=== PATIENT | male | born 1940 | race Caucasian/White ===

== ENCOUNTER 2016-10-28 17:32 | Emergency (ER) | payer OTHER ==
[~2016-10-28] VITALS: Ht 177.8 cm; Wt 94.2 kg
[~2016-10-28 17:32] MED LIST: ASPI81TA28 PO; COEN1CAP37 PO; DOCU100C31 PO; FRS/40 PO; LEVO125T4 PO; LPR25 PO; METO-217 PO; MULT-506 PO; OMEG10007 PO; POTA10CA28 PO; SIMV40TA2 PO
[2016-10-28 17:36] VITALS: BP 158/76; PULSE 70; TEMP 36.9; O2SAT 97; Ht 177.8 cm; Wt 94.2 kg
[2016-10-28] MEDS ORDERED: GELATIN SPONGE 12-7MM EXT STA (17:55)
--- NOTE | 2016-10-28 18:02 | EMERGENCY ROOM VISIT NOTE ---
ED Visit Note First contact with patient: 17:45 I have personally seen and evaluated the patient with the physician assistant operator. I agree with the diagnostic/management decisions and have personally been involved in these decisions and agree with the diagnosis.
--- NOTE | 2016-10-28 18:07 | EMERGENCY ROOM VISIT NOTE ---
ED Visit Note First contact with patient: 17:45 CHIEF COMPLAINT: Right thumb laceration HISTORY OF PRESENT ILLNESS: This 75-year-old male patient presents to the emergency department ambulatory after cutting the tip of the right thumb on a table saw about one hour ago. The bleeding has not stopped. There is no weakness or numbness of the area. Tetanus shot is up-to-date. Full range of motion of the thumb. The patient rates the pain as stinging and 1/10. REVIEW OF SYSTEMS: A 6 system review of systems was completed with positives and pertinent negatives listed in the HPI. ALLERGIES: Penicillins MEDICATIONS: See med list PMH: Hypothyroidism, hypertension SOCIAL HISTORY: The patient lives locally with family. PHYSICAL EXAM: Vital Signs: Reviewed Nurse's notes, vital signs stable. GENERAL : This is a 75-year-old male, in no acute distress, well-developed, well- nourished. SKIN: There is a 1.5 cm long avulsion laceration to distal aspect of the right thumb. It is superficial and the top layer of skin has been avulsed. There is no foreign material in the wound and it looks clean. There is active bleeding. No deep structures are seen in the base of the wound. Extension and flexion of the thumb is full and strong. Sensation to pain and light touch is intact. EMERGENCY DEPARTMENT COURSE: I examined the patient. Verbal consent was obtained to perform the procedure. The laceration was cleaned with saline and betadine. Gelfoam was applied to the avulsion laceration and the area was dressed with a pressure dressing. The bleeding stopped. The patient tolerated the procedure well. The patient was discharged home in stable condition. DIAGNOSIS: Avulsion laceration of the thumb Problem List Medical Problems: (1) Facial laceration Status: Resolved (2) Fall Status: Resolved Current/Historical Medications Scheduled Aspirin (Aspirin Ec), 81 MG PO DAILY Coenzyme Q10 (Ubidecarenone) (Co Q-10), 10 CAP PO DAILY Docusate Sodium (Docusate Sodium), 1 CAP PO BID Fish Oil ([place]-3), 1 CAP PO DAILY Furosemide (Lasix), 40 MG PO DAILY Levothyroxine Sodium (Levothyroxine Sodium), 125 MCG PO DAILY Metoprolol Succinate (Toprol Xl), 50 MG PO DAILY Metoprolol Tartrate (Lopressor), 25 MG PO Q12 Multivitamin (Multivitamin), 1 TAB PO DAILY Potassium Chloride (Micro-K Ext Rel), 20 MEQ PO DAILY Simvastatin (Zocor), 40 MG PO QPM Allergies Coded Allergies: Penicillins (Verified Allergy, Unknown, hives, 03/10/16) Vital Signs Date Time Temp Pulse Resp B/P Pulse Ox O2 Delivery O2 Flow Rate FiO2 10/28/16 17:36 36.9 70 18 158/76 97 Room Air Departure Information Impression Primary Impression: Laceration of finger Dispostion Home / Self-Care Condition GOOD Referrals Chetan Verde D.O.Int.Med. (PCP) Patient Instructions My [facility] Additional Instructions You have been treated in the Emergency Department today for your finger Avulsion. Leave the GELFOAM and dressing in place for the next 48 hours. Keep the dressing clean and dry until time for removal. To remove the GELFOAM dressing, remove the overlying tape and then soak the wound in warm water until the piece of GELFOAM can be easily removed. Proper wound care is essential for adequate wound healing and infection prevention. You can shower and clean the wound with soap and water. Do not scour over the wound, pat dry with a towel. You can use an antibiotic ointment with a dressing/bandage over the wound for the next 3-4 days. After this time you may leave the wound dry and open to the air. Look for signs of infection of the wound including: increased pain, swelling, foul discharge, streaking, or increased temperature. If any of these are noticed you should return to the Emergency Department for further assessment and treatment. As with any laceration you may have received nerve damage to the surrounding tissues. This damage could be permanent. For pain control, you can use the following aziy-ddw-zgsowdi medicines (if >12 yo): - Regular strength (325mg/tab) Tylenol (acetaminophen) 2 tabs every 4-6 hours as needed. Do not exceed 12 tablets in a 24 hour period. Avoid taking more than 4 grams (4000 mg) of Tylenol per day. This includes any other sources of acetaminophen you may take on a regular basis. - Regular strength (200 mg/tab) Advil (ibuprofen) 1-2 tabs every 4-6 hours as needed. Do not exceed a dose of 3200 mg per day. Return to the emergency department if your symptoms worsen despite treatment course outlined above. Problem Qualifiers Primary Impression: Laceration of finger Encounter type: initial encounter Qualified Codes: S61.219A - Laceration without foreign body of unspecified finger without damage to nail, initial encounter
== END 2016-10-28 18:14 | disposition home or self-care (01) ==
LOC: C.EDB 17:33 → C.EDD 18:14
DX: S61.011A Laceration without foreign body of right thumb without damage to nail, initial encounter (principal); W31.2XXA Contact with powered woodworking and forming machines, initial encounter; I10 Essential (primary) hypertension; E03.9 Hypothyroidism, unspecified; Z79.82 Long term (current) use of aspirin; Z79.899 Other long term (current) drug therapy; Z88.0 Allergy status to penicillin

== ENCOUNTER → 2017-04-12 | Outpatient (CLI) | payer OTHER ==
[2017-04-12 12:22] LABS: HEMATOCRIT 44.3 % (42-52); MEAN CELL VOLUME 90.6 fL (80-100); MEAN CORPUSCULAR HEMOGLOBIN 28.6 pg (25-34); MEAN CORPUSCULAR HGB CONC 31.6 g/dl (32-36); MEAN PLATELET VOLUME 11.3 fL (7.4-10.4); PLATELET COUNT 203 K/uL (130-400); RED BLOOD COUNT 4.89 M/uL (4.7-6.1); WHITE BLOOD COUNT 6.46 K/uL (4.8-10.8)
[2017-04-12 12:58] LABS: ALKALINE PHOSPHATASE 102 U/L (45-117); ALT/SGPT 28 U/L (12-78); BLOOD UREA NITROGEN 21 mg/dl (7-18); BUN/CREATININE RATIO 19.2 (10-20); CALCIUM 8.8 mg/dl (8.5-10.1); CARBON DIOXIDE 28 mmol/L (21-32); CHLORIDE 108 mmol/L (98-107); GLUCOSE 74 mg/dl (70-99); POTASSIUM 4.2 mmol/L (3.5-5.1); SODIUM 141 mmol/L (136-145)
[2017-04-12 13:00] LABS: AST/SGOT 24 U/L (15-37)
== END | disposition home or self-care (01) ==
LOC: C.LAB1850 11:26
PROVIDERS: ATTEND Physician Assistant
DX: I25.10 Atherosclerotic heart disease of native coronary artery without angina pectoris (principal)

== ENCOUNTER → 2017-07-12 | Outpatient (CLI) | payer OTHER ==
[2017-07-12 09:59] LABS: ALT/SGPT 19 U/L (12-78); AST/SGOT 14 U/L (15-37); BLOOD UREA NITROGEN 19 mg/dl (7-18); BUN/CREATININE RATIO 18.5 (10-20); CALCIUM 8.3 mg/dl (8.5-10.1); CARBON DIOXIDE 30 mmol/L (21-32); CHLORIDE 107 mmol/L (98-107); GLUCOSE 100 mg/dl (70-99); SODIUM 141 mmol/L (136-145)
[2017-07-12 10:10] LABS: ALB/GLOB RATIO 0.9 (0.9-2); ALKALINE PHOSPHATASE 87 U/L (45-117); CHOLESTEROL 120 mg/dl (0-200); HDL CHOLESTEROL 40 mg/dl; LDL CHOLESTEROL CALCULATED 58 mg/dl; THYROID STIMULATING HORMONE 0.122 uIu/ml (0.300-4.500); TRIGLYCERIDES 112 mg/dl (0-150); VERY LOW DENSITY LIPOPROT CALC 22 mg/dl
== END | disposition home or self-care (01) ==
LOC: C.LAB1850 08:19
PROVIDERS: ATTEND Internal Medicine
DX: Z00.00 Encounter for general adult medical examination without abnormal findings (principal); E03.9 Hypothyroidism, unspecified; E78.5 Hyperlipidemia, unspecified

== ENCOUNTER → 2017-08-31 | Outpatient (CLI) | payer OTHER ==
[~2017-08-31] MED LIST changes: -LEVO125T4 PO; +LEVO125T5 PO
== END | disposition home or self-care (01) ==
LOC: C.LABPVFM 09:43
PROVIDERS: ATTEND Physician Assistant
DX: E03.9 Hypothyroidism, unspecified (principal)

== ENCOUNTER → 2018-01-28 | Outpatient (CLI) | payer OTHER ==
[2018-01-28 14:08] LABS: ALBUMIN 3.5 gm/dl (3.4-5.0); ALT/SGPT 23 U/L (12-78); AST/SGOT 17 U/L (15-37); BLOOD UREA NITROGEN 15 mg/dl (7-18); CALCIUM 8.6 mg/dl (8.5-10.1); CARBON DIOXIDE 30 mmol/L (21-32); GLUCOSE 73 mg/dl (70-99); POTASSIUM 4.3 mmol/L (3.5-5.1); SODIUM 141 mmol/L (136-145)
[2018-01-28 14:19] LABS: ALKALINE PHOSPHATASE 102 U/L (45-117); TOTAL PROTEIN 7.2 gm/dl (6.4-8.2)
== END | disposition home or self-care (01) ==
LOC: C.LABBC 10:30
PROVIDERS: ATTEND Nurse Practitioner Adult Health
DX: E78.5 Hyperlipidemia, unspecified (principal); E03.9 Hypothyroidism, unspecified

== ENCOUNTER 2021-08-22 00:06 | Inpatient (IN) ==
[2021-08-22] MEDS ORDERED: SODIUM CHLORIDE 0.9% 500 ML IV ONE (00:39)
[2021-08-22] MEDS ORDERED: DEXAMETHASONE SOD INJ 4 MG/ML VIAL IV STA (00:39)
[2021-08-22] MEDS ORDERED: XYLOCAINE 1%/SOD BICARB 20 ML VIAL INFIL ONE (00:39)
--- NOTE | 2021-08-22 00:44 | Emergency Department Note ---
Impression & Plan Hypoxia, Pneumonia due to severe acute respiratory syndrome coronavirus 2 (SARS-CoV-2), [facility] NAME: TRAN ARNOLD AGE: 80 SEX: M ARRIVES VIA: Ambulance INFORMANT: Patient EMS ED PROVIDER(S): Tracy Felton DO CHIEF COMPLAINT: Shortness of breath and altered mental status PLAN: Disposition: Admit to the [facility] Condition: Critical MEDICAL DECISION MAKING: This is an 80-year-old male patient presents emergency department after suffering a fall and having increased shortness of breath. Patient's was diagnosed with COVID-19. Patient is most likely also positive for Covid. He has been having increased falls and altered mental status. He has now become increasingly short of breath. Per EMS, the patient had an O2 saturation of 80% on room air. Here in the emergency department, he was 65% on room air. Patient has significant hypoxia with bilateral pneumonia. He has an increased lactic consistent with sepsis. Patient has laceration above the left eye that was repaired by me. The patient seems to be in a Covid fog. His altered mental status could also be secondary to his prolonged hypoxemia. Patient has an elevated troponin consistent with NSTEMI. Triage Nursing notes reviewed and agree with them. Vital Signs: reviewed and remarkable for no significant abnormalities Differential diagnosis: Covid, hypoxemia, sepsis, intracranial hemorrhage, Covid fog, pneumonia, ER treatment provided: IV Tylenol IV normal saline IV Decadron Diagnostics interpreted by me: ECG: Normal sinus rhythm at 84 with PACs. There is no ST segment elevation or signs of ischemia. There is no ectopy. Cardiac Monitoring: Normal sinus rhythm at 72 Laboratory studies: See below Imaging studies: As per stat rad CT head: No intracranial hemorrhage, mass-effect or midline shift. There is no abnormal extra-axial fluid collection. No evidence of acute infarct. Minimal periventricular white matter hypodensities are most consistent with chronic microangiopathy. Mild mucosal thickening of the paranasal sinuses. No mastoid effusion. No fracture CT C-spine: No fracture or malalignment. No prevertebral soft tissue swelling. There are degenerative changes of the C-spine. HPI: 80/M arrives for evaluation of shortness of breath and altered mental status. Patient's recently was diagnosed with Covid and the patient most likely has Covid as well. He is become increasingly short of breath and c onfused. He has had increased falls. The patient suffered a fall and struck left side of his head tonight. EMS was called. O2 saturation at home for EMS was in the 80s. Patient is unvaccinated against Covid but has had a flu shot. ROS: See above HPI for pertinent positives & negatives. A total of 10 systems reviewed and were otherwise negative. PAST MEDICAL HISTORY:See Below PAST SURGICAL HISTORY:See Below FAMILY HISTORY:See Below SOCIAL HISTORY:See Below HOME MEDICATIONS:See Below ALLERGIES:See Below VITALS:See Below PHYSICAL EXAMINATION: HEENT: Head - normocephalic with a 2.5 cm curvilinear laceration over the left eyebrow pupils are equal, round, and reactive to light. Extraocular eye muscles are intact and sclera are anicteric. Ears - bilaterally patent canals with noninjected tympanic membranes and no evidence of hemotympanum. Nose - moist nasal mucosa without discharge. Mouth - moist buccal mucosa. Oropharynx is nonerythematous and there is no tonsillar exudate or edema noted. Neck: Supple; no JVD, nuchal rigidity, cervical lymphadenopathy, or auscultated bruits. Heart: Regular rate and rhythm. There is a normal S1 and S2 with no murmurs, clicks, or gallops appreciated. Lungs: Clear to auscultation bilaterally with no wheezes, rales, or rhonchi. Abdomen: Soft, completely nontender, nondistended, with good bowel sounds. There are no palpable pulsatile masses or hepatosplenomegaly. There is no guarding, rigidity, or rebound noted. Extremities: No evidence of cyanosis, clubbing, or edema. There are easily palpable peripheral pulses. Neuro:The patient is awake but confused. He will follow commands. ED COURSE: Times/Reassessments: 0020: The patient was evaluated in room A 9. A complete history and physical was performed. An order was placed for continuous cardiac monitoring. Patient was in a normal sinus rhythm at 72. A septic protocol was performed. The patient was given 10 mg of IV Decadron. A twelve-lead EKG was obtained as described above. The patient was initially on oxygen mask but O2 saturations only were in the 80s. He switched over to a non rebreather. The patient had an altered mental status. I talked to the patient's on the phone as to his CODE STATUS requests. She recommended that I speak with the patient's son. He arrived here in the emergency department and I spoke with him in the waiting room. He produced power of attor jocelyn paperwork which we discussed. He wanted more time to think about the possibility of intubation. At this time, intubation was not imminent. A septic protocol was performed. I donned complete PPE to evaluate the patient. I did speak to the patient's on the phone. I questioned what the patient's wishes would be with regards to being placed on a ventilator as his O2 saturations were difficult to maintain on an oxygen mask and nonrebreather as he was only maintaining high 80%. Location: Face Total length: 2.5 cm Complexity: Simple A time out was taken and the correct patient and site identified. The skin was prepped with betadine. The target area was anesthetized with 2 ml of 1% lidocaine without epinephrine. Copious irrigation was performed using sterile water. The skin was re-prepped with betadine and a sterile field set. The wound was explored for foreign bodies and none found. Examination revealed no injury to deep structures such as tendons, bone, or significant blood vessels. Debridement was not performed. The wound edges were approximated using 5, 5 -0 simple interrupted nylon sutures. Hemostasis and excellent approximation was achieved. Antibacterial ointment was applied. No complications and the patient tolerated the procedure well. I discussed the case with the [facility] hospitalist. I have personally spent greater than 75minutes of critical care time in the direct management of this patient. This includes bedside care, interpretation of diagnostic studies, and testing, discussion with consultants, patient, and family members, and other required patient management activities. This 75 minutes is in excess of all separately billable procedures. 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 Peripheral neuropathy Surgical History History of cardiac cath 3 YEARS AGO - [facility] - FAILED STRESS TEST --> CABG - FOLLOWS W/ DR. FREED History of cataract surgery RT: 2mg of versed given without apparent complications History of coronary artery bypass graft 4 [facility] - 3 YEARS AGO - [facility] - FOLLOWS W/ DR. FREED S/P CABG (coronary artery bypass graft) Family History Brother Coronary heart disease Father Coronary heart disease Other Cancer Congenital kidney disease Social History Smoking Status: Never smoker Second Hand Exposure: No; Hx Alcohol Use: No Hx Substance Use: No Preferred Language: Ugandan Communication Ability: Effective Visual Impairment: Limited Hearing Ability: Normal Food Broker Required: No Beliefs That Will Affect Care: None marital status: Current Living Situation: Spouse current occupational status: retired Other Information That Helps Us Care for You: No Feels Safe at Home: Yes Safety Concerns: Feels Safe At This Time Childhood Exposure to Second-Hand Smoke: No caffeine: Yes Dental Care, Regularly: Yes Physical Activity Frequency: Does not Exercise Seatbelt Use: always Sunscreen Use: Yes Assistive Devices: Glasses Allergies Allergies Allergy/AdvReac Type Severity Reaction Status Date / Time Penicillins Allergy Unknown hives Verified 05/16/21 14:01 Home Meds Home Medications Medication Instructions Recorded Confirmed aspirin 81 mg tablet,delayed 162 mg PO QAM tab 05/16/21 08/22/21 release Previous Rx's Medication Instructions Recorded levothyroxine 112 mcg tablet 112 mcg PO QAM #90 tab 05/06/21 atorvastatin 80 mg tablet 80 mg PO QPM #90 tab 05/17/21 metoprolol succinate 50 mg 50 mg PO QAM #90 tab 06/09/21 tablet,extended release 24 hr Results & Data (ED) Vital Signs Vital Signs - 24 hr 08/22/21 00:16 08/22/21 00:33 08/22/21 01:00 Temperature 38.1 C H Temperature Source Oral Pulse Rate 72 67 Pulse Rate [Apical] Respiratory Rate 25 H 24 Respiratory Effort / Characteristics Short of Breath Respiratory Depth Normal Respiratory Pattern Tachypnea Blood Pressure 149/53 H 148/62 H Blood Pressure Mean 85 90 Blood Pressure Position Lying Pulse Oximetry 65 L 86 L 93 Oxygen Delivery Method Room Air Oxymask Oxymask Non-rebreather Non-rebreather Oxygen Flow Rate 0 10 15 Sepsis Recent Fever Within 48 Hours Yes Sepsis New/Unexplained Change in Mental Status N/A Sepsis Action Taken by Nursing Physician Notified Oxygen Flow Rate - Titration 10 15 Pulse Oximetry Post Tiitration 91 92 08/22/21 01:50 Temperature 37.6 C H Temperature Source Oral Pulse Rate Pulse Rate [Apical] 61 Respiratory Rate 22 Respiratory Effort / Characteristics Non-Labored Spontaneous Respiratory Depth Normal Respiratory Pattern Regular Blood Pressure Blood Pressure Mean Blood Pressure Position Pulse Oximetry 94 Oxygen Delivery Method Non-rebreather Oxygen Flow Rate 15 Sepsis Recent Fever Within 48 Hours Sepsis New/Unexplained Change in Mental Status Sepsis Action Taken by Nursing Oxygen Flow Rate - Titration Pulse Oximetry Post Tiitration Laboratory Data Result diagrams: 08/23/21 06:15 08/23/21 06:15 Lab Results 08/22/21 08/22/21 08/22/21 Range/Units 00:41 00:41 00:41 WBC 7.70 (4.8-10.8) K/uL RBC 4.10 L (4.7-6.1) M/uL Hgb 12.1 L (14.0-18.0) g/dL Hct 36.9 L (42-52) % MCV 90.0 (80-100) fL MCH 29.5 (25-34) pg MCHC 32.8 (32-36) g/dL RDW Std Deviation 53.1 H (36.4-46.3) fL RDW Coeff of [place] 16.1 H (11.5-14.5) % Plt Count 191 (130-400) K/uL MPV 11.2 H (7.4-10.4) fL Immature Gran % (Auto) 0.1 % Neut % (Auto) 88.7 % Lymph % (Auto) 3.8 % [place] % (Auto) 7.3 % Eos % (Auto) 0.0 % Baso % (Auto) 0.1 % Neut # (Auto) 6.83 H (1.4-6.5) K/uL Lymph # (Auto) 0.29 L (1.2-3.4) K/uL [place] # (Auto) 0.56 (0.11-0.59) K/uL Eos # (Auto) 0.00 (0-0.5) K/uL Baso # (Auto) 0.01 (0-0.2) K/uL Immature Gran # (Auto) 0.01 (0.00-0.02) K/uL PT 10.3 (9.0-12.0) Seconds INR 1.0 (0.9-1.1) APTT 24.2 (21.0-31.0) Seconds PTT Ratio 0.9 Sodium 139 (136-145) mmol/L Potassium 3.1 L (3.5-5.1) mmol/L Chloride 104 (98-107) mmol/L Carbon Dioxide 29 (21-32) mmol/L Anion Gap 6.0 (3-11) BUN 26 H (7-18) mg/dl Creatinine 1.62 H (0.6-1.4) mg/dl Est Cr Clr Drug Dosing 39.3 ml/min Est GFR ( Amer) 45.1 ml/min Est GFR (Non-Af Amer) 38.9 ml/min BUN/Creatinine Ratio 16.3 (10-20) Glucose 146 H (70-99) mg/dl Lactate (0.4-2.0) mmol/L Calcium 8.9 (8.5-10.1) mg/dl Magnesium 2.5 H (1.8-2.4) mg/dl Total Bilirubin 0.9 (0.2-1) mg/dl AST 92 H (15-37) U/L ALT 87 H (12-78) U/L Alkaline Phosphatase 69 (45-117) U/L Troponin I 0.227 H* (0-0.045) ng/ml Total Protein 7.3 (6.4-8.2) gm/dl Albumin 2.6 L (3.4-5.0) gm/dl Globulin 4.7 H (2.5-4.0) gm/dl Albumin/Globulin Ratio 0.6 L (0.9-2) SARS-CoV-2 (PCR) (Negative) 08/22/21 08/22/21 08/22/21 Range/Units 00:41 00:53 03:07 WBC (4.8-10.8) K/uL RBC (4.7-6.1) M/uL Hgb (14.0-18.0) g/dL Hct (42-52) % MCV (80-100) fL MCH (25-34) pg MCHC (32-36) g/dL RDW Std Deviation (36.4-46.3) fL RDW Coeff of [place] (11.5-14.5) % Plt Count (130-400) K/uL MPV (7.4-10.4) fL Immature Gran % (Auto) % Neut % (Auto) % Lymph % (Auto) % [place] % (Auto) % Eos % (Auto) % Baso % (Auto) % Neut # (Auto) (1.4-6.5) K/uL Lymph # (Auto) (1.2-3.4) K/uL [place] # (Auto) (0.11-0.59) K/uL Eos # (Auto) (0-0.5) K/uL Baso # (Auto) (0-0.2) K/uL Immature Gran # (Auto) (0.00-0.02) K/uL PT (9.0-12.0) Seconds INR (0.9-1.1) APTT (21.0-31.0) Seconds PTT Ratio Sodium (136-145) mmol/L Potassium (3.5-5.1) mmol/L Chloride (98-107) mmol/L Carbon Dioxide (21-32) mmol/L Anion Gap (3-11) BUN (7-18) mg/dl Creatinine (0.6-1.4) mg/dl Est Cr Clr Drug Dosing ml/min Est GFR ( Amer) ml/min Est GFR (Non-Af Amer) ml/min BUN/Creatinine Ratio (10-20) Glucose (70-99) mg/dl Lactate 4.0 H* 1.0 (0.4-2.0) mmol/L Calcium (8.5-10.1) mg/dl Magnesium (1.8-2.4) mg/dl Total Bilirubin (0.2-1) mg/dl AST (15-37) U/L ALT (12-78) U/L Alkaline Phosphatase (45-117) U/L Troponin I (0-0.045) ng/ml Total Protein (6.4-8.2) gm/dl Albumin (3.4-5.0) gm/dl Globulin (2.5-4.0) gm/dl Albumin/Globulin Ratio (0.9-2) SARS-CoV-2 (PCR) POSITIVE A* (Negative) Administered Medications Aspirin (Aspirin 81 Mg Ectab) 162 mg PO QAM [facility] Stop: 09/21/21 08:59 Last Admin: 08/23/21 08:59 Dose: 162 mg Documented by: [id number] Admin: 08/22/21 08:53 Dose: 162 mg Documented by: [id number] Atorvastatin Calcium (Atorvastatin 40 Mg Tab) 80 mg PO QPM [facility] Stop: 09/21/21 20:59 Last Admin: 08/22/21 21:03 Dose: 80 mg Documented by: [id number] Baricitinib (Baricitinib 2 Mg Tab) 2 mg PO DAILY [facility]; Protocol Stop: 09/05/21 09:01 Last Admin: 08/23/21 09:05 Dose: Not Given Documented by: [id number] Enoxaparin Sodium (Enoxaparin Inj 40 Mg/0.4 Ml Syr) 40 mg SQ Q24H [facility] Stop: 09/22/21 05:59 Last Admin: 08/23/21 06:09 Dose: 40 mg Documented by: [id number] Furosemide (Furosemide Inj 20 Mg/2 Ml Vial) 20 mg IV QAM [facility] Stop: 09/22/21 08:59 Last Admin: 08/23/21 08:59 Dose: 20 mg Documented by: [id number] Dexamethasone 6 mg/ Syringe 1.5 mls @ 1 mls/min IV Q24H [facility]OTRES Stop: 09/21/21 07:59 Last Admin: 08/23/21 08:58 Dose: 1 mls/min Documented by: [id number] Admin: 08/22/21 08:06 Dose: 1 mls/min Documented by: [id number] Azithromycin 500 mg/ Dextrose 255 mls @ 125 mls/hr IV DAILY [facility] Stop: 08/29/21 08:59 Last Admin: 08/23/21 09:02 Dose: 125 mls/hr Documented by: [id number] Infusion: 08/22/21 10:10 Dose: 0 mls/hr Documented by: [id number] Admin: 08/22/21 08:07 Dose: 125 mls/hr Documented by: [id number] Ipratropium [place] (Ipratropium [place] Neb Soln 0.02% 2.5 Ml Vial) 0.5 mg INH Q6R [facility] Stop: 09/21/21 07:20 Last Admin: 08/23/21 07:42 Dose: 0.5 mg Documented by: [id number] Admin: 08/23/21 00:14 Dose: 0.5 mg Documented by: [id number] Admin: 08/22/21 20:20 Dose: 0.5 mg Documented by: [id number] Admin: 08/22/21 15:41 Dose: 0.5 mg Documented by: [id number] Admin: 08/22/21 08:20 Dose: Not Given Documented by: [id number] Levalbuterol HCl (Levalbuterol 1.25mg/0.5ml Neb) 1.25 mg INH Q6R [facility] Stop: 09/21/21 07:20 Last Admin: 08/23/21 07:42 Dose: 1.25 mg Documented by: [id number] Admin: 08/23/21 00:14 Dose: 1.25 mg Documented by: [id number] Admin: 08/22/21 20:20 Dose: 1.25 mg Documented by: [id number] Admin: 08/22/21 15:41 Dose: 1.25 mg Documented by: [id number] Admin: 08/22/21 08:20 Dose: Not Given Documented by: [id number] Levothyroxine Sodium (Levothyroxine Sodium 112 Mcg Tablet) [facility] Stop: 09/22/21 06:29 Last Admin: 08/23/21 06:09 Dose: 112 mcg Documented by: [id number] Metoprolol Succinate (Metoprolol Succ 50mg Ext Rel Tab) 50 mg PO [facility] Stop: 09/21/21 08:59 Last Admin: 08/23/21 08:58 Dose: 50 mg Documented by: [id number] Admin: 08/22/21 08:07 Dose: Not Given Documented by: [id number] Vitamin D (Cholecalciferol 1,000 Units 25 Mcg Tab) 1,000 units PO [facility] Stop: 09/21/21 08:59 Last Admin: 08/23/21 08:59 Dose: 1,000 units Documented by: [id number] Admin: 08/22/21 08:53 Dose: 1,000 units Documented by: [id number] Zinc Sulfate (Zinc Sulfate 220 Mg Capsule) [facility] [place] [facility] Stop: 09/21/21 08:59 Last Admin: 08/23/21 08:58 Dose: 220 mg Documented by: [id number] Admin: 08/22/21 08:53 Dose: 220 mg Documented by: [id number] Discontinued Medications Dexamethasone (Dexamethasone Sod Inj 4 Mg/Ml Vial) 10 mg IV NOW STA Stop: 08/22/21 00:40 Last Admin: 08/22/21 00:54 Dose: 10 mg Documented by: [id number] Diphtheria/Pertussis/Tetanus Vacc (Diphtheria/Tetanus/Pertussis 0.5 Ml Syr/Vial) 0.5 ml IM .ONCE ONE Stop: 08/22/21 03:35 Last Admin: 08/22/21 04:06 Dose: 0.5 ml Documented by: [id number] Enoxaparin Sodium (Enoxaparin Inj 40 Mg/0.4 Ml Syr) 40 mg SQ ONE STA Stop: 08/22/21 04:17 Last Admin: 08/22/21 05:15 Dose: 40 mg Documented by: [id number] Sodium Chloride (Nss) 500 mls @ 999 mls/hr IV .Q31M ONE Stop: 08/22/21 01:09 Last Infusion: 08/22/21 01:19 Dose: 0 mls/hr Documented by: [id number] Admin: 08/22/21 00:48 Dose: 999 mls/hr Documented by: [id number] Acetaminophen (Ofirmev) 1,000 mg in 100 mls @ 400 mls/hr IV NOW STA Stop: 08/22/21 01:00 Last Infusion: 08/22/21 01:08 Dose: 0 mls/hr Documented by: [id number] Admin: 08/22/21 00:53 Dose: 400 mls/hr Documented by: [id number] Potassium Chloride (K Jared / Wtr) 10 meq in 100 mls @ 100 mls/hr IV ONE STA Stop: 08/22/21 04:18 Last Infusion: 08/22/21 05:13 Dose: 0 mls/hr Documented by: [id number] Admin: 08/22/21 04:03 Dose: 100 mls/hr Documented by: [id number] Remdesivir 200 mg/ Sodium (Chloride) 250 mls @ 125 mls/hr IV ONE STA; Protocol Stop: 08/22/21 06:07 Last Infusion: 08/22/21 07:24 Dose: 0 mls/hr Documented by: [id number] Admin: 08/22/21 05:09 Dose: 125 mls/hr Documented by: [id number] Lidocaine HCl (Xylocaine 1%/Sod Bicarb 20 Ml Vial) 20 ml INFIL NOW ONE Stop: 08/22/21 00:40 Last Admin: 08/22/21 00:54 Dose: 20 ml Documented by: [id number] Potassium Chloride (Potassium Chloride Crtab 20 Meq Tabcr) 40 meq PO NOW STA Stop: 08/22/21 03:14 Last Admin: 08/22/21 04:06 Dose: 40 meq Documented by: [id number] Sodium Chloride (Sodium Chloride 0.9% 10ml Flush) 30 ml IV Q24H [facility] Stop: 08/26/21 07:22 Last Admin: 08/22/21 07:24 Dose: Not Given Documented by: [id number] Discharge Plan Visit Data Chief Complaint: Shortness of Breath/Dyspnea Stated Complaint: AMS/LETHARGIC ED Provider: Tracy Felton Discharge Problem: Hypoxia, Pneumonia due to severe acute respiratory syndrome coronavirus 2 (SARS-CoV-2), Sepsis Patient Disposition: Admitted As Inpatient Discharge Problem: Sepsis Qualifiers: Sepsis type: sepsis due to unspecified organism Sepsis acute organ dysfunction status: with acute organ dysfunction Severe sepsis acute organ dysfunction type: acute respiratory failure Acute respiratory failure type: with hypoxia Severe sepsis shock status: without septic shock Qualified Code(s): A41.9 - Sepsis, unspecified organism
[2021-08-22] MEDS ORDERED: ACETAMINOPHEN 1,000 MG/100 ML VIAL IV STA (00:46)
[2021-08-22 01:01] LABS: Basophils # (auto) 0.01 K/uL (0-0.2); Basophils % (auto) 0.1 %; Hematocrit (blood only) 36.9 % (42-52); Hemoglobin 12.1 g/dL (14.0-18.0); Immature Granulocytes # (auto) 0.01 K/uL (0.00-0.02); Immature Granulocytes % (auto) 0.1 %; Lymphocytes # (auto) 0.29 K/uL (1.2-3.4); Lymphocytes % (auto) 3.8 %; Mean Corpuscular Hemoglobin 29.5 pg (25-34); Mean Corpuscular Hgb Conc 32.8 g/dL (32-36); Mean Platelet Volume 11.2 fL (7.4-10.4); Monocytes # (auto) 0.56 K/uL (0.11-0.59); Monocytes % (auto) 7.3 %; Neutrophils # (auto) 6.83 K/uL (1.4-6.5); Neutrophils % (auto) 88.7 %; Platelet Count 191 K/uL (130-400); RDW Coefficient of Variation 16.1 % (11.5-14.5); RDW Standard Deviation 53.1 fL (36.4-46.3)
[2021-08-22 01:07] LABS: Partial Thromboplastin Ratio 0.9; Partial Thromboplastin Time 24.2 Seconds (21.0-31.0); Prothrombin Time 10.3 Seconds (9.0-12.0)
[2021-08-22 01:21] LABS: Albumin Level 2.6 gm/dl (3.4-5.0); BUN Creatinine Ratio 16.3 (10-20); Calcium 8.9 mg/dl (8.5-10.1); Creatinine Clr Calc Pharmacy 39.3 ml/min; Est GFR (African American) 45.1 ml/min; Est GFR (Non-African American) 38.9 ml/min; Magnesium 2.5 mg/dl (1.8-2.4); Potassium 3.1 mmol/L (3.5-5.1)
[2021-08-22 01:23] LABS: Albumin Globulin Ratio 0.6 (0.9-2); Bilirubin,Total 0.9 mg/dl (0.2-1); Globulin 4.7 gm/dl (2.5-4.0); Total Protein 7.3 gm/dl (6.4-8.2)
[2021-08-22 01:58] LABS: Troponin I 0.227 ng/ml (0-0.045)
[2021-08-22] MEDS ORDERED: POTASSIUM CHLORIDE CRTAB 20 MEQ TABCR PO STA (03:13)
[2021-08-22] MEDS ORDERED: POTASSIUM CHLORIDE / WTR 10 MEQ/100 ML PLCT IV STA (03:19)
[2021-08-22] MEDS ORDERED: DIPHTHERIA/TETANUS/PERTUSSIS 0.5 ML SYR/VIAL IM ONE (03:34)
[2021-08-22] MEDS ORDERED: REMDESIVIR 200 MG in SODIUM CHLORIDE 0.9% 210 ML IV STA (04:08)
--- NOTE | 2021-08-22 04:08 | History & Physical Report ---
Date of Service August 22, 2021 Assessment & Plan (1) Pneumonia due to COVID-19 virus: Plan: COVID-19 pneumonia with hypoxia- Dexamethasone 6 mg IV every morning Remdesivir IV per protocol Azithromycin 500 mg IV daily Xopenex/Atrovent-high flow nebulizers every 6 hours, and every 2 hours as needed Guaifenesin extended release 12 mg p.o. twice daily Vitamin D 1000 international units p.o. daily Zinc sulfate 2020 mg p.o. daily Oxygen supplementation via oxygen mask/nasal cannula, targeting pulse ox 92-94% Lovenox 40 mg subcu daily (2) Hypoxia: Plan: See above (3) Elevated troponin I level: Plan: Elevated troponin I level/paroxysmal tachycardia/CAD/hypertension- The patient will be admitted to telemetry for serial cardiac enzymes, serial EKG's, cardiac rhythm monitoring and a 2-D echocardiogram with Dopplers. Troponin 0.227 upon admission Continue aspirin 162 mg daily, metoprolol succinate extended release 50 mg daily (4) Coronary artery arteriosclerosis: Plan: See above (5) Tachycardia with heart rate 121-140 beats per minute: Plan: Suspect secondary to hypokalemia. Other concern is associated with COVID-19 myocarditis/pericarditis. We will check a echocardiogram with Dopplers (6) Hypertension: Plan: See above (7) Hyperlipidemia: Plan: Continue atorvastatin 80 mg daily (8) Hypothyroidism: Plan: Continue levothyroxine 112 mcg daily (9) Hypokalemia: Plan: Potassium 3.1 upon admission. We will give potassium 40 mEq p.o. x1 now, and potassium chloride rider, 10 mEq p.o. x1 Repeat laboratories in a.m. Likely cause of paroxysmal tachycardia (10) Abnormal LFTs: Plan: AST 92, ALT 87 upon admission May be secondary to viral causes. If no improvement with treatment of COVID-19, may order ultrasound to further assess History of Present Illness Chief Complaint: The patient is brought to the emergency department with 6 days of worsening shortness of breath, dyspnea on exertion and confusion. Primary Care Provider: Reno Agosto DO The patient is an 80-year-old male with a past medical history including hyperlipidemia, hypertension, hypothyroidism, CAD, and nocturia. The patient himself is somewhat confused, and unable to contribute significantly to HPI or review of systems. Information has been gained from my conversations with his son, who is in the emergency department this evening. His son noted that the patient had the above symptoms of 6 days of worsening shortness of breath, dyspnea exertion and confusion, and notes that the patient's is his home at this time with COVID-19 infection and a DVT. Allergies Allergy/AdvReac Type Severity Reaction Status Date / Time Penicillins Allergy Unknown hives Verified 05/16/21 14:01 Home Medications Medication Instructions Recorded Confirmed Type levothyroxine 112 mcg tablet 112 mcg PO QAM #90 tab 05/06/21 08/22/21 Rx aspirin 81 mg tablet,delayed 162 mg PO QAM tab 05/16/21 08/22/21 History release atorvastatin 80 mg tablet 80 mg PO QPM #90 tab 05/17/21 08/22/21 Rx metoprolol succinate 50 mg 50 mg PO QAM #90 tab 06/09/21 08/22/21 Rx tablet,extended release 24 hr Past Med/Surg History Medical History Antiplatelet or antithrombotic long-term use Coronary artery arteriosclerosis Elevated prostate specific antigen (PSA) Hyperlipidemia Hypertension Hypothyroidism Melanoma of eye Peripheral neuropathy Surgical History History of cardiac cath History of cataract surgery History of coronary artery bypass graft S/P CABG (coronary artery bypass graft) Family History Brother Coronary heart disease Father Coronary heart disease Other Cancer Congenital kidney disease Social History Smoking Status: Never smoker Second Hand Exposure: No; Hx Alcohol Use: No Hx Substance Use: No Preferred Language: Polish Communication Ability: Effective Visual Impairment: Limited Hearing Ability: Normal Taffy Puller Required: No Beliefs That Will Affect Care: None marital status: Current Living Situation: Spouse current occupational status: retired Feels Safe at Home: Yes Childhood Exposure to Second-Hand Smoke: No caffeine: Yes Dental Care, Regularly: Yes Physical Activity Frequency: Does not Exercise Seatbelt Use: always Sunscreen Use: Yes Assistive Devices: Glasses Review of Systems Review of Systems: Review of systems is as above as that noted with conversation with son, and is otherwise negative other than for that already stated Physical Exam Physical Exam: The patient is awake, disoriented and confused, forehead laceration noted, lying in bed bed and in no acute distress. HEENT--PERRL, EOMI, mucous membranes and oropharynx normal. Neck--supple. No JVD. No bruits. Thyroid normal, trachea midline, no adenopathy. Heart--normal S1 and S2. No murmurs, rubs or gallops. Lungs--coarse breath sounds bilaterally. No respiratory distress, no accessory muscle use. Abdomen--normal bowel sounds and soft. Nontender. Nondistended, no hernias or masses, no organomegaly. Extremities--no cyanosis or clubbing. No edema. Dermatologic--normal skin turgor, normal color, no abnormal lymph nodes, no rash. Neurologic--cranial nerves II through XII grossly intact. Rheumatologic--normal range of motion. Psychiatric--confused Results & Data Results & Data ([facility]) Vital Signs (Past 12 Hours) Vital Signs Temp Pulse Pulse Resp BP Pulse Ox 08/22/21 01:50 99.7 F H 61 22 94 08/22/21 01:00 67 24 148/62 H 93 08/22/21 00:33 86 L 08/22/21 00:16 100.6 F H 72 25 H 149/53 H 65 L Laboratory Results Laboratory Results WBC 7.70 K/uL (4.8-10.8) 08/22/21 00:41 RBC 4.10 M/uL (4.7-6.1) L 08/22/21 00:41 Hgb 12.1 g/dL (14.0-18.0) L 08/22/21 00:41 Hct 36.9 % (42-52) L 08/22/21 00:41 MCV 90.0 fL (80-100) 08/22/21 00:41 MCH 29.5 pg (25-34) 08/22/21 00:41 MCHC 32.8 g/dL (32-36) 08/22/21 00:41 RDW Std Deviation 53.1 fL (36.4-46.3) H 08/22/21 00:41 RDW Coeff of [place] 16.1 % (11.5-14.5) H 08/22/21 00:41 Plt Count 191 K/uL (130-400) 08/22/21 00:41 MPV 11.2 fL (7.4-10.4) H 08/22/21 00:41 Immature Gran % (Auto) 0.1 % 08/22/21 00:41 Neut % (Auto) 88.7 % 08/22/21 00:41 Lymph % (Auto) 3.8 % 08/22/21 00:41 [place] % (Auto) 7.3 % 08/22/21 00:41 Eos % (Auto) 0.0 % 08/22/21 00:41 Baso % (Auto) 0.1 % 08/22/21 00:41 Neut # (Auto) 6.83 K/uL (1.4-6.5) H 08/22/21 00:41 Lymph # (Auto) 0.29 K/uL (1.2-3.4) L 08/22/21 00:41 [place] # (Auto) 0.56 K/uL (0.11-0.59) 08/22/21 00:41 Eos # (Auto) 0.00 K/uL (0-0.5) 08/22/21 00:41 Baso # (Auto) 0.01 K/uL (0-0.2) 08/22/21 00:41 Immature Gran # (Auto) 0.01 K/uL (0.00-0.02) 08/22/21 00:41 PT 10.3 Seconds (9.0-12.0) 08/22/21 00:41 INR 1.0 (0.9-1.1) 08/22/21 00:41 APTT 24.2 Seconds (21.0-31.0) 08/22/21 00:41 PTT Ratio 0.9 08/22/21 00:41 Sodium 139 mmol/L (136-145) 08/22/21 00:41 Potassium 3.1 mmol/L (3.5-5.1) L 08/22/21 00:41 Chloride 104 mmol/L (98-107) 08/22/21 00:41 Carbon Dioxide 29 mmol/L (21-32) 08/22/21 00:41 Anion Gap 6.0 (3-11) 08/22/21 00:41 BUN 26 mg/dl (7-18) H 08/22/21 00:41 Creatinine 1.62 mg/dl (0.6-1.4) H 08/22/21 00:41 Est Cr Clr Drug Dosing 39.3 ml/min 08/22/21 00:41 Est GFR ( Amer) 45.1 ml/min 08/22/21 00:41 Est GFR (Non-Af Amer) 38.9 ml/min 08/22/21 00:41 BUN/Creatinine Ratio 16.3 (10-20) 08/22/21 00:41 Glucose 146 mg/dl (70-99) H 08/22/21 00:41 Lactate 1.0 mmol/L (0.4-2.0) 08/22/21 03:07 Calcium 8.9 mg/dl (8.5-10.1) 08/22/21 00:41 Magnesium 2.5 mg/dl (1.8-2.4) H 08/22/21 00:41 Total Bilirubin 0.9 mg/dl (0.2-1) 08/22/21 00:41 AST 92 U/L (15-37) H 08/22/21 00:41 ALT 87 U/L (12-78) H 08/22/21 00:41 Alkaline Phosphatase 69 U/L (45-117) 08/22/21 00:41 Troponin I 0.227 ng/ml (0-0.045) H* 08/22/21 00:41 Total Protein 7.3 gm/dl (6.4-8.2) 08/22/21 00:41 Albumin 2.6 gm/dl (3.4-5.0) L 08/22/21 00:41 Globulin 4.7 gm/dl (2.5-4.0) H 08/22/21 00:41 Albumin/Globulin Ratio 0.6 (0.9-2) L 08/22/21 00:41 SARS-CoV-2 (PCR) POSITIVE (Negative) A* 08/22/21 00:53 Code Status & VTE Plan Code Status Full code, as per discussion with son VTE Prophylaxis Plan VTE Prophylaxis will be ordered: Yes PG Care Time/CCT Total # of Minutes Spent Total Time Spent with Patient: Total time spent is greater than 50% in coordination of care (as documented) at patient's floor/unit and/or counseling patient: Coding Level of Care Code 26340 Initial Inpt Care Lvl 3 Diagnoses Pneumonia due to COVID-19 virus U07.1; J12.82 Hypoxia R09.02 Elevated troponin I level R77.8 Tachycardia with heart rate 121-140 beats per minute R00.0 Hyperlipidemia E78.5 Hypertension I10 Hypothyroidism E03.9 Coronary artery arteriosclerosis I25.10 Hypokalemia E87.6 Abnormal LFTs R94.5
[2021-08-22] MEDS ORDERED: ENOXAPARIN INJ 40 MG/0.4 ML SYR SQ STA (04:16)
--- NOTE | 2021-08-22 07:20 | CT Scan Report ---
CERVICAL SPINE CT CT DOSE: HISTORY: fall TECHNIQUE: Multiaxial CT images of the cervical spine were performed and reformatted in the sagittal and coronal plane without the use of contrast. A dose lowering technique was utilized adhering to th e principles of ALARA. COMPARISON: None. FINDINGS: No fractures.. Prevertebral soft tissues and the C1-C2 interval are intact. No pneumothorax . Moderate degenerative changes within the facets and lower cervical spine. IMPRESSION: No fractures within the cervical spine. ACT 112: Negative or not required by law. Electronically signed by: Clark Lopez M.D. 08/22/2021 7:19 AM
[2021-08-22] MEDS ORDERED: XOPENEX/ATROVENT 1.25mg/0.5MG NEB COMBO NEB SCH (07:21)
[2021-08-22] MEDS ORDERED: SODIUM CHLORIDE 0.9% 10ML FLUSH IV SCH (07:21)
[2021-08-22] MEDS ORDERED: ONDANSETRON INJ 2 MG/ML 2 ML VIAL IV PRN (07:21)
--- NOTE | 2021-08-22 07:44 | CT Scan Report ---
CT OF THE HEAD WITHOUT CONTRAST CLINICAL HISTORY: Fall. COMPARISON STUDY: No previous studies for comparison. CT DOSE: 1087.33 mGy.cm TECHNIQUE: Helical axial images of the head were obtained without IV contrast. Automated exposure con trol was utilized for the study. A dose lowering technique was utilized adhering to the principles o f ALARA. FINDINGS: No acute intracranial hemorrhage, midline shift or mass effect is present. The ventricular system is unremarkable. White matter hypodensity suggests small vessel disease. There may be a small old infarct within the left frontal lobe. The basal cisterns are patent. No extra-axial collections a re present. There are no findings to suggest acute dural sinus thrombosis or acute territorial infarc t. No significant calvarial abnormalities are present. Mild sinus mucosal thickening is noted. Air-fl uid level within the right maxillary sinus is partially imaged. IMPRESSION: No acute intracranial findings. ACT 112: Negative or not required by law. Electronically signed by: Abdulaziz Gant M.D. 08/22/2021 7:42 AM
[2021-08-22] MEDS: dexAMETHasone 6 MG in SYRINGE 0 ML IV SCH (08:06)
[2021-08-22] MEDS: AZITHROMYCIN 500 MG in DEXTROSE 5% 250 ML IV SCH (08:07)
[2021-08-22] MEDS: METOPROLOL SUCC 50MG EXT REL TAB PO SCH (08:07)
[2021-08-22] MEDS: LEVALBUTEROL 1.25MG/0.5ML NEB INH SCH ×3 (08:20→20:20)
[2021-08-22] MEDS: IPRATROPIUM BROMIDE NEB SOLN 0.02% 2.5 ML VIAL INH SCH ×3 (08:20→20:20)
[2021-08-22] MEDS: ASPIRIN 81 MG ECTAB PO SCH (08:53)
[2021-08-22] MEDS: CHOLECALCIFEROL 1,000 UNITS 25 MCG TAB PO SCH (08:53)
[2021-08-22] MEDS: ZINC SULFATE 220 MG CAPSULE PO SCH (08:53)
--- NOTE | 2021-08-22 08:58 | XRay Report ---
XR chest 1V portable HISTORY: SEPSIS COMPARISON: Chest 02/04/2016. FINDINGS: No pneumothorax. No pleural effusions. The cardiac silhouette is mildly enlarged. There are poststernotomy changes. There are patchy bilateral airspace opacities. IMPRESSION: Patchy bilateral airspace opacities. This favors a viral pneumonia. ACT 112: Negative or not required by law. Electronically signed by: Clark Lopez M.D. 08/22/2021 8:57 AM
[2021-08-22 09:12] LABS: BUN Creatinine Ratio 18.9 (10-20); Calcium 8.1 mg/dl (8.5-10.1); Creatinine Clr Calc Pharmacy 44.8 ml/min; Est GFR (African American) 50.3 ml/min; Est GFR (Non-African American) 43.4 ml/min; Potassium 3.9 mmol/L (3.5-5.1); Troponin I 0.321 ng/ml (0-0.045)
--- NOTE | 2021-08-22 19:04 | XCELERA ---
[id number] \\[id number]
[2021-08-22] MEDS: ATORVASTATIN 40 MG TAB PO SCH (21:03)
--- NOTE | 2021-08-22 22:41 | History & Physical Bridge Note ---
Date of Service August 22, 2021 History & Physical Bridge Note I have examined the patient, reviewed the History & Physical and in the interval since the performance of the History & Physical I have noted the following changes of clinical significance: patient placed on high flow, had to be titrated up to 40L and 100%, he is not in distress attempted to speak with his son twice, no answer, will call him back discussed with patient that he may get worse, would need BIPAP if that happens will consult pulmonology to see him tomorrow, look into baricitinib
[2021-08-23] MEDS: LEVALBUTEROL 1.25MG/0.5ML NEB INH SCH ×2 (00:14→07:42)
[2021-08-23] MEDS: IPRATROPIUM BROMIDE NEB SOLN 0.02% 2.5 ML VIAL INH SCH ×2 (00:14→07:42)
[2021-08-23] MEDS: ENOXAPARIN INJ 40 MG/0.4 ML SYR SQ SCH (06:09)
[2021-08-23] MEDS: LEVOTHYROXINE SODIUM 112 MCG TABLET PO SCH (06:09)
--- NOTE | 2021-08-23 06:30 | Electrocardiogram Report ---
Test Reason : Blood Pressure : / mmHG Vent. Rate : 084 BPM Atrial Rate : 084 BPM P-R Int : 000 ms QRS Dur : 082 ms QT Int : 368 ms P-R-T Axes : 000 -16 048 degrees QTc Int : 434 ms Poor data quality, interpretation may be adversely affected Sinus rhythm with frequent Premature atrial complexes No previous ECGs available Confirmed by Stalin Moore ([id number]) on 08/23/2021 6:30:21 AM Referred By: REFERRED SELF Confirmed By:Stalin Moore
[2021-08-23 06:52] LABS: Hematocrit (blood only) 40.1 % (42-52); Immature Granulocytes # (auto) 0.05 K/uL (0.00-0.02); Immature Granulocytes % (auto) 0.3 %; Lymphocytes # (auto) 0.61 K/uL (1.2-3.4); Lymphocytes % (auto) 4.2 %; Mean Corpuscular Hemoglobin 29.1 pg (25-34); Mean Corpuscular Hgb Conc 32.4 g/dL (32-36); Mean Corpuscular Volume 89.9 fL (80-100); Mean Platelet Volume 11.4 fL (7.4-10.4); Monocytes % (auto) 3.5 %; Neutrophils # (auto) 13.31 K/uL (1.4-6.5); Platelet Count 226 K/uL (130-400); RDW Coefficient of Variation 15.9 % (11.5-14.5); RDW Standard Deviation 52.7 fL (36.4-46.3); Red Blood Count 4.46 M/uL (4.7-6.1); White Blood Count 14.47 K/uL (4.8-10.8)
[2021-08-23 07:18] LABS: BUN Creatinine Ratio 24.5 (10-20); C Reactive Protein 11.9 mg/dl (0-0.29); Calcium 8.4 mg/dl (8.5-10.1); Creatinine Clr Calc Pharmacy 52.8 ml/min; Est GFR (African American) 61.8 ml/min; Est GFR (Non-African American) 53.3 ml/min; Magnesium 2.5 mg/dl (1.8-2.4); Potassium 3.9 mmol/L (3.5-5.1)
[2021-08-23 07:21] LABS: Albumin Globulin Ratio 0.5 (0.9-2); Bilirubin,Total 0.6 mg/dl (0.2-1); Globulin 4.4 gm/dl (2.5-4.0); Total Protein 6.4 gm/dl (6.4-8.2)
--- NOTE | 2021-08-23 07:22 | Pulmonary Consultation ---
Date of Consultation August 23, 2021 Assessment & Plan (1) Pneumonia due to COVID-19 virus: (2) Hypoxia: Attending: Dr. Hand Impression: This is an 80-year-old male with a 7-day history of symptoms for COVID-19. He was at home and fell and was transported to the emergency department by ambulance. In route he was found to have an SaO2 of 80% on room air. In the emergency department the attending physician noted a SaO2 of 65% on room air. He was placed on supplemental oxygen and tested for Covid which was positive. Patient's is at home also with COVID-19. Patient currently is on high flow supplemental oxygen. He is with an FiO2 of 100% and 40 L/min. Patient states he is not nicely uncomfortable. He is saturating in the low 90s with the high flow. Patient currently is afebrile. He has no chest pain or tightness. He has no prior pulmonary history and no smoking history. He is unvaccinated as he "opted not to". Recommendations: 1. COVID-19: * Chest x-ray with bilateral patchy infiltrates suggestive of viral pneumonia * Currently requiring high flow supplemental oxygen * CRP is elevated at 11.9. Will start patient on baricitinib. Inasmuch as this can exacerbate infection, will check procalcitonin to rule out concurrent bacterial infection. * Patient also had an elevated troponin on arrival is 0.321. This is down trended to 0.183. Patient denies any chest pain or tightness. * Patient was started on dexamethasone is currently receiving 6 mg IV daily * Patient is on azithromycin at this time. * Remdesivir was also started. Would recommend discontinuing remdesivir as patient has a slight elevation in AST and ALT and patient is 7 days out from initial presentation of symptoms. * Continue to encourage proning as tolerated. 2. Hypoxia: * No prior history of pulmonary disease * No prior history of tobacco use * Suspect that this is related directly to COVID-19/ARDs * Continue supplemental oxygen with high flow as tolerated. Patient may require transition to BiPAP and or mechanical ventilation. Thank you for including us in the care of this patient. Please refer to Dr. Hand's addendum for further recommendations and corrections. The pulmonary service will continue to follow along with you at this time. Supervising Physician Co-Signing Physician Notes Seen and examined. Discussed with the critical care JACOB and agree with assessment plan as noted. Severe hypoxemic respiratory failure associated with Covid pneumonia. Continue Baricitinib and dexamethasone. Recommend palliative care consultation prior to consideration for intubation as the patient's predicted mortality approaches 70% despite aggressive interventions and not sure he has capacity to make decisions for himself. History of Present Illness Reason for Consultation: Evaluate for appropriateness of baricitinib Attending Physician: Jacob Alcocer DO History of Present Illness Attending: Dr. Hand This is an 80-year-old male with a past medical history including hyperlipidemia, hypothyroidism, hypertension, CAD, and nocturia. The patient continues to remain somewhat confused. It is unclear as to how chronic this is. Patient presented emergency department on 08/22/2021 for shortness of breath, hypoxia, altered mental status, and recent fall. He had a laceration on his f orehead which required sutures. CT scan of the head and cervical spine showed no acute process. Chest x-ray revealed patchy bilateral airspace opacities favoring viral pneumonia. Serology was positive for SARSCOV2. Patient remains hypoxic and is on high flow supplemental oxygen currently with an FiO2 of 100%. He is self pronating as well as alternating laying on his side throughout the night. Nurse reports that he has not spent much time in a pronated position but alternates between right and left side for sleeping. Patient denies any shortness of breath with rest with the supplemental oxygen. He states that he gets "winded" with any exertion. He is somewhat confused and I am not confident in the accuracy of his review of systems. Patient's is also home with COVID-19 infection and a deep vein thrombosis. Patient son says that the symptoms have been progressive for the last 6 to 7 days. Patient currently denies fever sweats chills or rigors. Is unable to describe any previous pulmonary disease. Review of his most recent wellness exam from 10/21/2020 reveals no previous pulmonary disease. Social history from that visit reveals that the patient has never been a smoker. The patient denies any acute complaints. He continues on high flow supplemental oxygen. Allergies Allergy/AdvReac Type Severity Reaction Status Date / Time Penicillins Allergy Unknown hives Verified 05/16/21 14:01 Home Medications Medication Instructions Recorded Confirmed Type levothyroxine 112 mcg tablet 112 mcg PO QAM #90 tab 05/06/21 08/22/21 Rx aspirin 81 mg tablet,delayed 162 mg PO QAM tab 05/16/21 08/22/21 History release atorvastatin 80 mg tablet 80 mg PO QPM #90 tab 05/17/21 08/22/21 Rx metoprolol succinate 50 mg 50 mg PO QAM #90 tab 06/09/21 08/22/21 Rx tablet,extended release 24 hr Patient History Medical History Antiplatelet or antithrombotic long-term use Coronary artery arteriosclerosis Elevated prostate specific antigen (PSA) last PSA 2015, declines further testing Hyperlipidemia Hypertension Hypothyroidism Melanoma of eye Followed by [facility]. Peripheral neuropathy Surgical History History of cardiac cath 3 YEARS AGO - [facility] - FAILED STRESS TEST --> CABG - FOLLOWS W/ DR. FREED History of cataract surgery RT: 2mg of versed given without apparent complications History of coronary artery bypass graft [facility] - 3 YEARS AGO - [facility] - FOLLOWS W/ DR. FREED S/P CABG (coronary artery bypass graft) Family History Brother Coronary heart disease Father Coronary heart disease Other Cancer Congenital kidney disease Social History Smoking Status: Never smoker Second Hand Exposure: No; Hx Alcohol Use: No Hx Substance Use: No Preferred Language: Estonian Communication Ability: Effective Visual Impairment: Limited Hearing Ability: Normal Threader Operator Required: No Beliefs That Will Affect Care: None marital status: Current Living Situation: Spouse current occupational status: retired Other Information That Helps Us Care for You: No Feels Safe at Home: Yes Safety Concerns: Feels Safe At This Time Childhood Exposure to Second-Hand Smoke: No caffeine: Yes Dental Care, Regularly: Yes Physical Activity Frequency: Does not Exercise Seatbelt Use: always Sunscreen Use: Yes Assistive Devices: Glasses Review of Systems Review of Systems: All systems reviewed & are unremarkable except as noted in Subjective Physical Exam Physical Exam: GENERAL : No acute distress. Somewhat confused. EYES: No icterus, gaze conjugate. Pupils equal round and reactive to light. NOSE: No evidence of epistaxis. High flow nasal cannula in place MOUTH: No lesions or candidiasis. Mucosa moist. NECK: Supple LUNGS: Faint wheezes in the posterior mid [place]. No appreciation of rales or rhonchi. HEART: Regular, rate controlled ABDOMEN: Soft, NT, ND, BS Present EXTREMITIES: No LE edema, pedal pulses intact NEURO: Awake and alert. Some disorientation. Results & Data Results & Data ([facility]) Vital Signs (Past 12 Hours) Vital Signs Temp Pulse Resp BP Pulse Ox 08/23/21 03:50 36.7 C 74 18 134/56 L 95 08/23/21 03:18 60 26 H 90 08/23/21 00:15 65 26 H 91 08/22/21 23:20 36.5 C 80 18 148/62 H 92 08/22/21 23:08 63 24 92 08/22/21 20:20 61 22 87 L 08/22/21 19:17 36.9 C 66 20 135/60 88 L Laboratory Results 08/23/21 06:15 08/23/21 06:15 COVID-19 Results 08/22/21 00:53 SARS-CoV-2 (PCR) POSITIVE A* Ventilator Ordered Settings Respiratory Rate 18 08/23/21 03:50 Fraction of Inspired Oxygen 100 08/23/21 03:18 Ventilator - PT Measurements Respiratory Rate 18 Diagnostic Findings Cervical Spine CT 08/22/21 00:[address] DOSE: HISTORY: fall TECHNIQUE: Multiaxial CT images of the cervical spine were performed and reformatted in the sagittal and coronal plane without the use of contrast. A dose lowering technique was utilized adhering to the principles of ALARA. COMPARISON: None. FINDINGS: No fractures.. Prevertebral soft tissues and the C1-C2 interval are intact. No pneumothorax. Moderate degenerative changes within the facets and lower cervical spine. IMPRESSION: No fractures within the cervical spine. ACT 112: Negative or not required by law. Electronically signed by: Clark Lopez M.D. 08/22/2021 7:[address] 08/22/21 00:36 CT OF THE HEAD WITHOUT CONTRAST CLINICAL HISTORY: Fall. COMPARISON STUDY: No previous studies for comparison. CT DOSE: 1087.33 mGy.cm TECHNIQUE: Helical axial images of the head were obtained without IV contrast. Automated exposure control was utilized for the study. A dose lowering technique was utilized adhering to the principles of ALARA. FINDINGS: No acute intracranial hemorrhage, midline shift or mass effect is present. The ventricular system is unremarkable. White matter hypodensity suggests small vessel disease. There may be a small old infarct within the left frontal lobe. The basal cisterns are patent. No extra-axial collections are present. There are no findings to suggest acute dural sinus thrombosis or acute territorial infarct. No significant calvarial abnormalities are present. Mild sinus mucosal thickening is noted. Air-fluid level within the right maxillary sinus is partially imaged. IMPRESSION: No acute intracranial findings. ACT 112: Negative or not required by law. Electronically signed by: Abdulaziz Gant M.D. 08/22/2021 7:42 AM Chest X-Ray 08/22/21 00:38 XR chest 1V portable HISTORY: SEPSIS COMPARISON: Chest 02/04/2016. FINDINGS: No pneumothorax. No pleural effusions. The cardiac silhouette is mildly enlarged. There are poststernotomy changes. There are patchy bilateral airspace opacities. IMPRESSION: Patchy bilateral airspace opacities. This favors a viral pneumonia. ACT 112: Negative or not required by law. Electronically signed by: Clark Lopez M.D. 08/22/2021 8:57 AM PG Care Time/CCT Total # of Minutes Spent Total Time Spent with Patient: Total time spent is greater than 50% in coordination of care (as documented) at patient's floor/unit and/or counseling patient: 60 minutes Coding Level of Care Code 12949 Initial Inpt Care Lvl 3 Diagnoses Pneumonia due to COVID-19 virus U07.1; J12.82 Hypoxia R09.02 Time Spent (min) 60
[2021-08-23] MEDS ORDERED: BARICITINIB COMMUNICATION ONE (07:42)
[2021-08-23] MEDS: dexAMETHasone 6 MG in SYRINGE 0 ML IV SCH (08:58)
[2021-08-23] MEDS: METOPROLOL SUCC 50MG EXT REL TAB PO SCH (08:58)
[2021-08-23] MEDS: ZINC SULFATE 220 MG CAPSULE PO SCH (08:58)
[2021-08-23] MEDS: ASPIRIN 81 MG ECTAB PO SCH (08:59)
[2021-08-23] MEDS: FUROSEMIDE INJ 20 MG/2 ML VIAL IV SCH (08:59)
[2021-08-23] MEDS: CHOLECALCIFEROL 1,000 UNITS 25 MCG TAB PO SCH (08:59)
[2021-08-23] MEDS: AZITHROMYCIN 500 MG in DEXTROSE 5% 250 ML IV SCH (09:02)
[2021-08-23] MEDS: BARICITINIB 2 MG TAB PO SCH ×2 (09:05→12:55)
--- NOTE | 2021-08-23 10:44 | Palliative Care Consultation ---
Date of Consultation August 23, 2021 Assessment & Plan (1) Palliative care encounter: This gentleman is an 80 year old male who presented to the [facility] with covid-19 symptoms that were occurring for over a week prior to his admission. He was at home and fell. He is unvaccinated. He was started on Baricitinib. His CRP was elevated on arrival at 11.9. Additional PMH includes: HTN, HLD, hypothyroidism. He is now having increased oxygen requirements and while the patient is still able to have conversation, feel it is important to gain an understanding of his and his families overall goal of care. Palliative Medicine was consulted to discuss goals of care. I met with Mr. Carrera in room 205. He was sitting in his bedside chair in no apparent distress. He was able to have converstaion with me; however, did become winded with full sentence speaking. We talked about his illness and his insight seemed quite poor. He did hit his head when he fell and I do have question for his ability to make a meaningful and reliable decision regarding his goal of care. Unfortunately, he has reached near maximum support through the hi-flow oxygen with FiO2 100% and 55L/min. His saturations remains near 90-93%. Anticipate that he will require intubation in the near future with a likely poor recovery. I did briefly discuss intubation and tracheostomy with this patient; however, like I mentioned, he was unable to really process the complexity of his illness and I would defer decision making to his next of kin. I did call his , Narcisa at [phone] and left her a voicemail with the palliative # for call back. Dr. Alcocer had just gotten off of the phone with the patients son who indicated that he would like to pursue a trial intubation if he experiences respiratory decline. For now, remain a full code. Palliative will follow. (2) Hypoxia: Unfortunately, he has reached near maximum support through the hi-flow oxygen with FiO2 100% and 55L/min. His saturations remains near 90-93%. (3) Pneumonia due to COVID-19 virus: Was having COVID-19 symptoms at home for 7 days prior to his fall. He had an elevated CRP 11.9 Procal was negative He is currently receiving Baricitinib. (4) Altered mental status: History of Present Illness Reason for Consultation: goals of care Requesting Physician: Shahab Garcia PA-C Attending Physician: Jacob Alcocer DO History of Present Illness This gentleman is an 80 year old male who presented to the [facility] with covid-19 symptoms that were occuring for over a week prior to his admission. He was at home and fell. He is unvaccinated. He was started on Baricitinib. His CRP was elevated on arrival at 11.9. Additional PMH includes: HTN, HLD, hypothyroidism. He is now having increased oxygen requirements and while the patient is still able to have conversation, feel it is important to gain an understanding of his and his families overall goal of care. Palliative Medicine was consulted to discuss goals of care. Please see A/P for further details. Thanks for involving Palliative Medicine with this unfortunate individual. Allergies Allergy/AdvReac Type Severity Reaction Status Date / Time Penicillins Allergy Unknown hives Verified 05/16/21 14:01 Home Medications Medication Instructions Recorded Confirmed Type levothyroxine 112 mcg tablet 112 mcg PO QAM #90 tab 05/06/21 08/22/21 Rx aspirin 81 mg tablet,delayed 162 mg PO QAM tab 05/16/21 08/22/21 History release atorvastatin 80 mg tablet 80 mg PO QPM #90 tab 05/17/21 08/22/21 Rx metoprolol succinate 50 mg 50 mg PO QAM #90 tab 06/09/21 08/22/21 Rx tablet,extended release 24 hr Patient History Medical History (Updated 08/23/21 @ 10:59 by MICHAEL Ferro) Altered mental status Antiplatelet or antithrombotic long-term use Coronary artery arteriosclerosis Elevated prostate specific antigen (PSA) last PSA 2015, declines further testing Hyperlipidemia Hypertension Hypothyroidism Melanoma of eye Followed by [facility]. Palliative care encounter Peripheral neuropathy Surgical History History of cardiac cath 3 YEARS AGO - [facility] - FAILED STRESS TEST --> CABG - FOLLOWS W/ DR. FREED History of cataract surgery RT: 2mg of versed given without apparent complications History of coronary artery bypass graft 4 [facility] - 3 YEARS AGO - [facility] - FOLLOWS [facility]/ DR. FREED S/P CABG (coronary artery bypass graft) Family History Brother Coronary heart disease Father Coronary heart disease Other Cancer Congenital kidney disease Social History Smoking Status: Never smoker Second Hand Exposure: No; Hx Alcohol Use: No Hx Substance Use: No Preferred Language: Lao Communication Ability: Effective Visual Impairment: Limited Hearing Ability: Normal Stunner And Shackler Required: No Beliefs That Will Affect Care: None marital status: Current Living Situation: Spouse current occupational status: retired Other Information That Helps Us Care for You: No Feels Safe at Home: Yes Safety Concerns: Feels Safe At This Time Childhood Exposure to Second-Hand Smoke: No caffeine: Yes Dental Care, Regularly: Yes Physical Activity Frequency: Does not Exercise Seatbelt Use: always Sunscreen Use: Yes Assistive Devices: Glasses Review of Systems Review of Systems: [place] System Assessment Scale: Pain: 0/3 SOB: 3/3 Anxiety: 1/3 Lack of Appetite: 1/3 Palliative Performance Scale: 40% Physical Exam Constitutional: + ill appearing and cooperative ENMT: Mouth: + dry oral mucous membranes Respiratory: + respiratory distress and + cough Auscultation: + rhonchi Cardiovascular: Rate/Rhythm: regular rate and regular rhythm Heart Sounds: normal S1 and normal S2 Extremities: normal capillary refill; no edema Gastrointestinal (Abdomen): Inspection/Auscultation: abdomen normal to inspection Skin: + lesion (s/p fall, sutures in place) and + pallor Psychiatric: Orientation: alert and oriented x 3 Insight: + limited insight Judgement: + limited judgement Results & Data ([facility]) Vital Signs (Past 12 Hours) Vital Signs Temp Pulse Resp BP Pulse Ox 08/23/21 08:21 90 20 85 L 08/23/21 07:44 36.4 C L 68 20 132/52 L 87 L 08/23/21 07:43 66 20 85 L 08/23/21 03:50 36.7 C 74 18 134/56 L 95 08/23/21 03:18 60 26 H 90 08/23/21 00:15 65 26 H 91 08/22/21 23:20 36.5 C 80 18 148/62 H 92 08/22/21 23:08 63 24 92 PG Care Time/CCT Total # of Minutes Spent Total Time Spent with Patient: Total time spent is greater than 50% in coordination of care (as documented) at patient's floor/unit and/or counseling patient: 100 minutes with > 50% of that time spent assessing the patient, discussing goals of care with the family and collaborating with IDT Coding Level of Care Code 76150 Initial Inpt Care Lvl 3 Diagnoses Palliative care encounter Z51.5 Hypoxia R09.02 Pneumonia due to COVID-19 virus U07.1; J12.82 Altered mental status R41.82 Time Spent (min) 100
--- NOTE | 2021-08-23 11:16 | Hospitalist Progress Note ---
Date of Service August 23, 2021 Assessment & Plan (1) Pneumonia due to severe acute respiratory syndrome coronavirus 2 ( RS-CoV-2): Plan: continue on dexamethasone 6mg IV daily azithromycin 500mg daily added baricitinib 2mg daily on 08/23, pulmonology consulted Lasix 20mg IV given this morning, continue qAM incentive spirometer (2) Hypoxia: Plan: profound, due to severe pneumonia on 60L and 100% Lasix qAM try to get him on his side or prone but due to confusion he won't comply (3) Altered mental status: Plan: has some memory issues chronically one to one sitter needed today as he would take out nasal canula and desaturate to 70's Admission and Anticipated Discharge Date Admission Date: August 22, 2021 Subjective patient requiring more oxygen this morning, he was up to 40L and 100% RT had to place him on 55L and 100% and then 60L he was pulling out nasal canula, requiring one to one sitter, he is generally confused appreciate pulmonary consult, he qualifies for baricitinib, ordered 2mg daily I discussed the risks of baricitinib with his son who is the POA and he agreed to treatment I discussed with patient and then with his son that he is maxed out on high flow next step would be NIPPV and likely ventilation if he gets to that point patient is not in any distress despite needing so much oxygen, he is breathing a little fast and using belly muscles slightly he is eating well had a decent response to Lasix 20mg IV this morning Review of Systems Review of Systems: All systems reviewed & are unremarkable except as noted in Subjective Respiratory: + cough, + dyspnea and + dyspnea on exertion Physical Exam Physical Exam: General: well developed, obese elderly male, ill appearing but no distress Neck: supple, trachea midline, normal thyroid Lungs: some crackles in bases, + tachypnea, + belly breathing, no distress Heart: regular S1 and S2, no murmur, peripheral pulses normal, capillary refill normal, no edema Abdomen: soft, NT, ND, + BS, no hepatomegaly, normal to percussion Extremities: normal in appearance, no cyanosis, no petechiae, strength is 5/5 bilaterally Neuro: awake, cooperative, moves all extremities, no focal motor deficits, CN II-XII intact, sensation in extremities intact, normal speech Skin: warm, dry, no rash, normal turgor, small laceration above left eye with stitches Psych: Awake, alert oriented x 3, euthymic affect Results & Data Results & Data ([facility]) Vital Signs (Past 12 Hours) Vital Signs Temp Pulse Resp BP Pulse Ox 08/23/21 08:21 90 20 85 L 08/23/21 07:44 36.4 C L 68 20 132/52 L 87 L 08/23/21 07:43 66 20 85 L 08/23/21 03:50 36.7 C 74 18 134/56 L 95 08/23/21 03:18 60 26 H 90 08/23/21 00:15 65 26 H 91 08/22/21 23:20 36.5 C 80 18 148/62 H 92 Laboratory Results Laboratory Results - last 24 hr 08/22/21 08/23/21 08/23/21 15:29 06:15 06:15 WBC 14.47 H RBC 4.46 L Hgb 13.0 L Hct 40.1 L MCV 89.9 MCH 29.1 MCHC 32.4 RDW Std Deviation 52.7 H RDW Coeff of [place] 15.9 H Plt Count 226 MPV 11.4 H Immature Gran % (Auto) 0.3 Neut % (Auto) 92.0 Lymph % (Auto) 4.2 Mason % (Auto) 3.5 Eos % (Auto) 0.0 Baso % (Auto) 0.0 Neut # (Auto) 13.31 H Lymph # (Auto) 0.61 L Mason # (Auto) 0.50 Eos # (Auto) 0.00 Baso # (Auto) 0.00 Immature Gran # (Auto) 0.05 H Sodium 140 Potassium 3.9 Chloride 106 Carbon Dioxide 25 Anion Gap 9.0 BUN 31 H Creatinine 1.25 Est Cr Clr Drug Dosing 52.8 Est GFR ( Amer) 61.8 Est GFR (Non-Af Amer) 53.3 BUN/Creatinine Ratio 24.5 H Glucose 132 H Calcium 8.4 L Magnesium 2.5 H Total Bilirubin 0.6 AST 79 H ALT 76 Alkaline Phosphatase 63 Troponin I 0.183 H* C-Reactive Protein 11.90 H Total Protein 6.4 Albumin 2.0 L Globulin 4.4 H Albumin/Globulin Ratio 0.5 L Procalcitonin 08/23/21 07:37 WBC RBC Hgb Hct MCV MCH MCHC RDW Std Deviation RDW Coeff of [place] Plt Count MPV Immature Gran % (Auto) Neut % (Auto) Lymph % (Auto) Mason % (Auto) Eos % (Auto) Baso % (Auto) Neut # (Auto) Lymph # (Auto) Mason # (Auto) Eos # (Auto) Baso # (Auto) Immature Gran # (Auto) Sodium Potassium Chloride Carbon Dioxide Anion Gap BUN Creatinine Est Cr Clr Drug Dosing Est GFR ( Amer) Est GFR (Non-Af Amer) BUN/Creatinine Ratio Glucose Calcium Magnesium Total Bilirubin AST ALT Alkaline Phosphatase Troponin I C-Reactive Protein Total Protein Albumin Globulin Albumin/Globulin Ratio Procalcitonin 0.18 Medications Administered Current Inpatient Medications Aspirin (Aspirin 81 Mg Ectab) 162 mg PO QAM [facility] Stop: 09/21/21 08:59 Last Admin: 08/23/21 08:59 Dose: 162 mg Documented by: Atorvastatin Calcium (Atorvastatin 40 Mg Tab) 80 mg PO QPM [facility] Stop: 09/21/21 20:59 Last Admin: 08/22/21 21:03 Dose: 80 mg Documented by: Baricitinib (Baricitinib 2 Mg Tab) 2 mg PO DAILY [facility]; Protocol Stop: 09/05/21 09:01 Last Admin: 08/23/21 09:05 Dose: Not Given Documented by: Enoxaparin Sodium (Enoxaparin Inj 40 Mg/0.4 Ml Syr) 40 mg SQ Q24H [facility] Stop: 09/22/21 05:59 Last Admin: 08/23/21 06:09 Dose: 40 mg Documented by: Furosemide (Furosemide Inj 20 Mg/2 Ml Vial) 20 mg IV QAM [facility] Stop: 09/22/21 08:59 Last Admin: 08/23/21 08:59 Dose: 20 mg Documented by: Dexamethasone 6 mg/ Syringe 1.5 mls @ 1 mls/min IV Q24H [facility] Stop: 09/21/21 07:59 Last Admin: 08/23/21 08:58 Dose: 1 mls/min Documented by: Azithromycin 500 mg/ Dextrose 255 mls @ 125 mls/hr IV DAILY [facility] Stop: 08/29/21 08:59 Last Admin: 08/23/21 09:02 Dose: 125 mls/hr Documented by: Ipratropium [place] (Ipratropium [place] Neb Soln 0.02% 2.5 Ml Vial) 0.5 mg INH Q6R [facility] Stop: 09/21/21 07:20 Last Admin: 08/23/21 07:42 Dose: 0.5 mg Documented by: Levalbuterol HCl (Levalbuterol 1.25mg/0.5ml Neb) 1.25 mg INH Q6R [facility] Stop: 09/21/21 07:20 Last Admin: 08/23/21 07:42 Dose: 1.25 mg Documented by: Levothyroxine Sodium (Levothyroxine Sodium 112 Mcg Tablet) 112 mcg PO DAILYBB [facility] Stop: 09/22/21 06:29 Last Admin: 08/23/21 06:09 Dose: 112 mcg Documented by: Metoprolol Succinate (Metoprolol Succ 50mg Ext Rel Tab) 50 mg PO QAM [facility] Stop: 09/21/21 08:59 Last Admin: 08/23/21 08:58 Dose: 50 mg Documented by: Ondansetron HCl (Ondansetron Inj 2 Mg/Ml 2 Ml Vial) 4 mg IV Q6H PRN PRN Reason: Nausea Stop: 09/21/21 07:20 Vitamin D (Cholecalciferol 1,000 Units 25 Mcg Tab) [facility] Stop: 09/21/21 08:59 Last Admin: 08/23/21 08:59 Dose: 1,000 units Documented by: Zinc Sulfate (Zinc Sulfate 220 Mg Capsule) 220 mg PO QAM [facility] Stop: 09/21/21 08:59 Last Admin: 08/23/21 08:58 Dose: 220 mg Documented by: PG Care Time/CCT Total # of Minutes Spent Total Time Spent: 32 Total Time Spent with Patient: Total time spent is greater than 50% in coordination of care (as documented) at patient's floor/unit and/or counseling patient: Coding Level of Care Code 72845 Subseq Hosp Care Lvl 3 (25 - SIGNIFICANT, SEPARATELY IDENTIFIABLE ) Diagnoses Pneumonia due to severe acute respiratory syndrome coronavirus 2 (SARS-CoV-2) U07.1; J12.82 Hypoxia R09.02 Altered mental status R41.82
[2021-08-23] MEDS ORDERED: IPRATROPIUM BROMIDE NEB SOLN 0.02% 2.5 ML VIAL INH PRN (11:18)
[2021-08-23] MEDS ORDERED: LEVALBUTEROL 1.25MG/0.5ML NEB INH PRN (11:18)
[2021-08-23] MEDS ORDERED: REMDESIVIR 100 MG in SODIUM CHLORIDE 0.9% 230 ML IV SCH (12:00)
[2021-08-23] MEDS ORDERED: SODIUM CHLORIDE 0.9% 10ML FLUSH IV SCH (13:00)
[2021-08-23] MEDS: ATORVASTATIN 40 MG TAB PO SCH (21:40)
--- NOTE | 2021-08-24 06:00 | Electrocardiogram Report ---
Test Reason : Blood Pressure : / mmHG Vent. Rate : 127 BPM Atrial Rate : 127 BPM P-R Int : 232 ms QRS Dur : 082 ms QT Int : 272 ms P-R-T Axes : 000 -22 107 degrees QTc Int : 395 ms Sinus tachycardia with 1st degree A-V block Left ventricular hypertrophy with repolarization abnormality Abnormal ECG When compared with ECG of 22-AUG-2021 00:13, Vent. rate has increased BY [address] now depressed in Anterior leads Confirmed by Stalin Moore ([id number]) on 08/24/2021 6:00:23 AM Referred By: REFERRED SELF Confirmed By:Stalin Moore
--- NOTE | 2021-08-24 06:03 | Electrocardiogram Report ---
Test Reason : Blood Pressure : / mmHG Vent. Rate : 061 BPM Atrial Rate : 061 BPM P-R Int : 196 ms QRS Dur : 088 ms QT Int : 340 ms P-R-T Axes : 015 -20 050 degrees QTc Int : 342 ms Sinus rhythm with Premature atrial complexes Minimal voltage criteria for LVH, may be normal variant Nonspecific ST and T wave abnormality Abnormal ECG When compared with ECG of 22-AUG-2021 02:45, Premature atrial complexes are now Present [place] interval has decreased Vent. rate has decreased BY [address] no longer depressed in Anterior leads Confirmed by Stalin Moore ([id number]) on 08/24/2021 6:02:47 AM Referred By: REFERRED SELF Confirmed By:Stalin Moore
[2021-08-24] MEDS: LEVOTHYROXINE SODIUM 112 MCG TABLET PO SCH (06:21)
[2021-08-24] MEDS: ENOXAPARIN INJ 40 MG/0.4 ML SYR SQ SCH (06:21)
[2021-08-24 07:06] LABS: Basophils # (auto) 0.01 K/uL (0-0.2); Basophils % (auto) 0.1 %; Hematocrit (blood only) 38.7 % (42-52); Hemoglobin 12.8 g/dL (14.0-18.0); Immature Granulocytes # (auto) 0.09 K/uL (0.00-0.02); Immature Granulocytes % (auto) 0.7 %; Lymphocytes # (auto) 0.32 K/uL (1.2-3.4); Lymphocytes % (auto) 2.5 %; Mean Corpuscular Hemoglobin 29.6 pg (25-34); Mean Corpuscular Hgb Conc 33.1 g/dL (32-36); Mean Corpuscular Volume 89.4 fL (80-100); Mean Platelet Volume 11.3 fL (7.4-10.4); Monocytes # (auto) 0.47 K/uL (0.11-0.59); Monocytes % (auto) 3.6 %; Neutrophils # (auto) 12.04 K/uL (1.4-6.5); Neutrophils % (auto) 93.1 %; Platelet Count 242 K/uL (130-400); RDW Coefficient of Variation 16.1 % (11.5-14.5); RDW Standard Deviation 53.2 fL (36.4-46.3); Red Blood Count 4.33 M/uL (4.7-6.1); White Blood Count 12.93 K/uL (4.8-10.8)
--- NOTE | 2021-08-24 07:32 | Hospitalist Progress Note ---
Date of Service August 24, 2021 Assessment & Plan (1) Pneumonia due to severe acute respiratory syndrome coronavirus 2 ( RS-CoV-2): Plan: continue on dexamethasone 6mg IV daily azithromycin 500mg daily added baricitinib 2mg daily on 08/23, pulmonology following Lasix 20mg IV continues qAM incentive spirometer (2) Hypoxia: Plan: profound, due to severe pneumonia now cpap dependent 100% fio2 Lasix qAM try to get him on his side or prone but due to confusion he won't comply (3) Altered mental status: Plan: has some memory issues chronically, darvin son and family making medical decisions one to one sitter needed today as he would take out nasal canula and desaturate to 70's Admission and Anticipated Discharge Date Admission Date: August 22, [address] Hand the patient's son, Darvin who is the power of collections attorney for healthcare. made pt DNR/DNI Pt seems to be BiPap dependent, discussed intubation The patient is demonstrating increased work of breathing. He has had an escalation in his oxygen requirement and is now dependent on CPAP Darvin, the son, does the state that the patient has an advanced directive indicating that he would not want CPR or aggressive cardioversion. Review of Systems Review of Systems: Unobtainable due to cognitive status Physical Exam Physical Exam: The patient appeared significantly ill Vital signs as documented. Head exam is normocephalic atraumatic Neck is without JVD, thyromegaly, or carotid bruits. Lungs are coarse in all lung zones Cardiac exam, Rhythm is regular.. No murmurs, rubs or gallops. Abdominal exam reveals normal bowel sounds, soft non tender, no masses Extremities are nonedematous and both pedal pulses are present Neurologic exam is alert and oriented x2, no focal loss of strength or sensation Skin is without bruises or rashes Psychologically is without concerns for anxiety or depression.. Results & Data Results & Data ([facility]) Vital Signs (Past 12 Hours) Vital Signs Temp Pulse Resp BP BP Pulse Ox 08/24/21 07:22 99.0 F 64 20 136/56 L 89 L 08/24/21 05:30 20 93 08/24/21 04:38 57 L 22 90 08/24/21 04:07 98.1 F 63 24 110/42 L 90 08/24/21 01:21 59 L 22 90 08/23/21 21:49 58 L 20 91 08/23/21 20:13 94 PG Care Time/CCT Total # of Minutes Spent Total Time Spent with Patient: Total time spent is greater than 50% in coordination of care (as documented) at patient's floor/unit and/or counseling patient: Coding Level of Care Code 11438 Subseq Hosp Care Lvl 3 Diagnoses Pneumonia due to severe acute respiratory syndrome coronavirus 2 (SARS-CoV-2) U07.1; J12.82 Hypoxia R09.02 Altered mental status R41.82
[2021-08-24 07:39] LABS: BUN Creatinine Ratio 33.2 (10-20); Calcium 8.8 mg/dl (8.5-10.1); Creatinine Clr Calc Pharmacy 48.9 ml/min; Est GFR (African American) 62.4 ml/min; Est GFR (Non-African American) 53.8 ml/min; Magnesium 2.5 mg/dl (1.8-2.4); Potassium 4.4 mmol/L (3.5-5.1)
[2021-08-24 07:41] LABS: Albumin Globulin Ratio 0.5 (0.9-2); Bilirubin,Total 0.6 mg/dl (0.2-1)
[2021-08-24] MEDS: CHOLECALCIFEROL 1,000 UNITS 25 MCG TAB PO SCH (07:52)
[2021-08-24] MEDS: ASPIRIN 81 MG ECTAB PO SCH (07:53)
[2021-08-24] MEDS: ZINC SULFATE 220 MG CAPSULE PO SCH (07:53)
[2021-08-24] MEDS: METOPROLOL SUCC 50MG EXT REL TAB PO SCH (07:54)
[2021-08-24] MEDS: FUROSEMIDE INJ 20 MG/2 ML VIAL IV SCH (07:54)
[2021-08-24] MEDS: AZITHROMYCIN 500 MG in DEXTROSE 5% 250 ML IV SCH (08:09)
[2021-08-24] MEDS: dexAMETHasone 6 MG in SYRINGE 0 ML IV SCH (08:59)
--- NOTE | 2021-08-24 15:12 | Electrocardiogram Report ---
Test Reason : Blood Pressure : / mmHG Vent. Rate : 060 BPM Atrial Rate : 060 BPM P-R Int : 168 ms QRS Dur : 086 ms QT Int : 438 ms P-R-T Axes : 029 -21 058 degrees QTc Int : 438 ms Normal sinus rhythm Normal ECG When compared with ECG of 22-AUG-2021 02:51, QT has lengthened Confirmed by Stalin Moore ([id number]) on 08/24/2021 3:11:54 PM Referred By: REFERRED SELF Confirmed By:Stalin Moore
[2021-08-24 15:55] LABS: Appearance Urine Clear (Clear); Bacteria Urine Automated Negative (Negative); Bilirubin Urine Negative (Negative); Blood Urine 2+ (Negative); Color Urine Yellow; Epithelial Cell Urine Auto 0-5 /lpf (0-5); Glucose Urine UA Negative (Negative); Ketones Urine Negative (Negative); Leukocyte Esterase Urine Negative (Negative); Nitrite Urine Negative (Negative); Protein Urine Negative (Negative); RBC Urine Automated 0-4 /hpf (0-4); Specific Gravity Urine 1.009 (1.000-1.030); Urobilinogen Urine Negative (Negative)
--- NOTE | 2021-08-24 17:42 | Pulmonology Progress Note ---
Date of Service August 24, 2021 Assessment & Plan (1) Altered mental status: (2) Hypoxia: (3) Pneumonia due to severe acute respiratory syndrome coronavirus 2 (SARS-CoV-2): Plan: (1) Pneumonia due to COVID-19 virus: (2) Hypoxia: Impression: This is an 80-year-old male with a 7-day history of symptoms for COVID-19. He was at home and fell and was transported to the emergency department by ambulance. In route he was found to have an SaO2 of 80% on room air. In the emergency department the attending physician noted a SaO2 of 65% on room air. He was placed on supplemental oxygen and tested for Covid which was positive. Patient's is at home also with COVID-19. Patient currently is on high flow supplemental oxygen. He is with an FiO2 of 100% and 40 L/min. Patient states he is not nicely uncomfortable. He is saturating in the low 90s with the high flow. Patient currently is afebrile. He has no chest pain or tightness. He has no prior pulmonary history and no smoking history. He is unvaccinated as he "opted not to". Recommendations: 1. COVID-19: Continue dexamethasone and baricitinib. Had a long discussion with family members regarding other therapeutic options including monoclonal antibodies, ivermectin, and hydrochloroquine. He is not a candidate for monoclonal antibodies as they are not approved for inpatients and is outside the window. Given that the patient is 7 days out from onset of symptoms with mild elevation in AST and ALT have elected to stop this. He is currently on azithromycin as well. I discussed with him that hydroxychloroquine is not recommended and ivermectin has no data to support it. If they wanted to pursue these interventions, they would need to get the patient to an alternative hospital willing to provide these medications. There is no data that has been shown that these medications are effective in treating or preventing complications of Covid and in fact there is data to suggest that there are adverse effects associated with these medications. 2. Hypoxia: Long discussion with the patient's , POA, and signs. We discussed all options including transition to a full palliative measure, continuing current levels of care without escalation, or intubation mechanical ventilation. After careful consideration and multiple thoughtful questions, the patient believes that Mr. Whigham would not want to pursue intubation mechanical ve ntilation. They would like to continue current therapy but not escalate his care. They do reiterate that he has an advanced directive in place indicating he would not want CPR chest compressions. His CODE STATUS will be updated accordingly. We will continue CPAP/BiPAP alternating with high flow as well as dexamethasone Lasix and treating any potentially reversible causes in the hope that the patient has significant improvement. If he declines, would favor rapid transition to palliative care measures. The family does ask about whether or not the patient's can come to bedside for a palliative visit. I advised them that this may be possible and they should discussed with the nurse and hospital administration as to whether or not palliative visitors might be appropriate. This is somewhat complicated by the patient's current residence on the [facility] unit. We will continue to follow. His prognosis is guarded. Again if his clinical condition should decline would favor rapid institution of palliative measures to prevent long-term patient suffering. A total of 90 minutes critical care time was spent in evaluation management of this patient including end-of-life discussions and multiple discussions with patient's nurse, family members, and admitting hospitalist. Admission and Anticipated Discharge Date Admission Date: August 22, 2021 Subjective Patient seen and examined. EMR reviewed. Discussed with hospitalist on m tiple occasions as well as with the patient's son, Darvin who is the power of corporate associate attorney for healthcare. Conducted a family conference with patient's and 3 sons as well. See comments below. The patient is demonstrating increased work of breathing. He has had an escalation in his oxygen requirement and is now dependent on CPAP or BiPAP. When asked about intubation, the patient defers all decisions to his family. Darvin does the state that the patient has an advanced directive indicating that he would not want CPR or aggressive cardioversion. It is not clear on intubation. Review of Systems Review of Systems: All systems reviewed & are unremarkable except as noted in Subjective Physical Exam Physical Exam: General: well developed, obese elderly male, ill appearing but no distress Neck: supple, trachea midline, normal thyroid Lungs: some crackles in bases, + tachypnea, + belly breathing, no distress Heart: regular S1 and S2, no murmur, peripheral pulses normal, capillary refill normal, no edema Abdomen: soft, NT, ND, + BS, no hepatomegaly, normal to percussion Extremities: normal in appearance, no cyanosis, no petechiae, strength is 5/5 bilaterally Neuro: awake, cooperative, moves all extremities, no focal motor deficits, CN II-XII intact, sensation in extremities intact, normal speech Skin: warm, dry, no rash, normal turgor, small laceration above left eye with stitches Psych: Awake, alert oriented x 3, euthymic affect Results & Data Results & Data ([facility]) Vital Signs (Past 12 Hours) Vital Signs Temp Pulse Pulse Resp BP Pulse Ox 08/24/21 16:34 36.4 C 63 31 H 152/67 H 93 08/24/21 14:17 64 33 H 91 08/24/21 11:37 66 27 H 91 08/24/21 08:44 20 90 08/24/21 07:22 37.2 C 64 30 H 136/56 L 89 L Laboratory Results 08/24/21 06:27 08/24/21 06:27 Diagnostic Findings No new films PG Care Time/CCT Total # of Minutes Spent Total Time Spent with Patient: Total time spent is greater than 50% in coordination of care (as documented) at patient's floor/unit and/or counseling patient: Coding Level of Care Code Critical Care ea addt'l 30 min Diagnoses Altered mental status R41.82 Hypoxia R09.02 Pneumonia due to severe acute respiratory syndrome coronavirus 2 (SARS-CoV-2) U07.1; J12.82 Time Spent (min) 90
[2021-08-24] MEDS: ATORVASTATIN 40 MG TAB PO SCH (20:57)
[2021-08-25] MEDS: ENOXAPARIN INJ 40 MG/0.4 ML SYR SQ SCH (05:24)
[2021-08-25] MEDS: LEVOTHYROXINE SODIUM 112 MCG TABLET PO SCH (05:24)
--- NOTE | 2021-08-25 06:34 | Electrocardiogram Report ---
Test Reason : Blood Pressure : / mmHG Vent. Rate : 065 BPM Atrial Rate : 065 BPM P-R Int : 184 ms QRS Dur : 088 ms QT Int : 436 ms P-R-T Axes : 023 -14 073 degrees QTc Int : 453 ms Normal sinus rhythm Normal ECG When compared with ECG of 23-AUG-2021 08:14, No significant change was found Confirmed by Stalin Moore ([id number]) on 08/25/2021 6:34:00 AM Referred By: REFERRED SELF Confirmed By:Stalin Moore
[2021-08-25 06:57] LABS: Hematocrit (blood only) 39.7 % (42-52); Hemoglobin 12.8 g/dL (14.0-18.0); Immature Granulocytes # (auto) 0.06 K/uL (0.00-0.02); Immature Granulocytes % (auto) 0.4 %; Lymphocytes # (auto) 0.32 K/uL (1.2-3.4); Lymphocytes % (auto) 2.4 %; Mean Corpuscular Hemoglobin 28.7 pg (25-34); Mean Corpuscular Hgb Conc 32.2 g/dL (32-36); Mean Platelet Volume 11.4 fL (7.4-10.4); Monocytes # (auto) 0.52 K/uL (0.11-0.59); Monocytes % (auto) 3.9 %; Neutrophils # (auto) 12.57 K/uL (1.4-6.5); Neutrophils % (auto) 93.3 %; Platelet Count 257 K/uL (130-400); RDW Coefficient of Variation 16.1 % (11.5-14.5); RDW Standard Deviation 52.9 fL (36.4-46.3); Red Blood Count 4.46 M/uL (4.7-6.1); White Blood Count 13.47 K/uL (4.8-10.8)
[2021-08-25 07:25] LABS: Albumin Level 1.9 gm/dl (3.4-5.0); BUN Creatinine Ratio 34.6 (10-20); Calcium 8.8 mg/dl (8.5-10.1); Creatinine Clr Calc Pharmacy 63.9 ml/min; Est GFR (African American) 86.1 ml/min; Est GFR (Non-African American) 74.2 ml/min; Magnesium 2.6 mg/dl (1.8-2.4); Potassium 4.3 mmol/L (3.5-5.1)
[2021-08-25 07:28] LABS: Albumin Globulin Ratio 0.4 (0.9-2); Bilirubin,Total 0.9 mg/dl (0.2-1); Globulin 4.3 gm/dl (2.5-4.0); Total Protein 6.2 gm/dl (6.4-8.2)
[2021-08-25] MEDS: AZITHROMYCIN 500 MG in DEXTROSE 5% 250 ML IV SCH (08:58)
[2021-08-25] MEDS: dexAMETHasone 6 MG in SYRINGE 0 ML IV SCH (08:59)
[2021-08-25] MEDS: FUROSEMIDE INJ 20 MG/2 ML VIAL IV SCH (08:59)
[2021-08-25] MEDS: CHOLECALCIFEROL 1,000 UNITS 25 MCG TAB PO SCH (10:03)
[2021-08-25] MEDS: ASPIRIN 81 MG ECTAB PO SCH (10:03)
[2021-08-25] MEDS: BARICITINIB 2 MG TAB PO SCH (10:03)
[2021-08-25] MEDS: ZINC SULFATE 220 MG CAPSULE PO SCH (10:04)
[2021-08-25] MEDS: METOPROLOL SUCC 50MG EXT REL TAB PO SCH (10:04)
--- NOTE | 2021-08-25 11:34 | Pulmonology Progress Note ---
Date of Service August 25, 2021 Assessment & Plan (1) Altered mental status: (2) Hypoxia: (3) Pneumonia due to severe acute respiratory syndrome coronavirus 2 (SARS-CoV-2): Plan: (1) Pneumonia due to COVID-19 virus: (2) Hypoxia: Impression: This is an 80-year-old male with a 7-day history of symptoms for COVID-19. He was at home and fell and was transported to the emergency department by ambulance. In route he was found to have an SaO2 of 80% on room air. In the emergency department the attending physician noted a SaO2 of 65% on room air. He was placed on supplemental oxygen and tested for Covid which was positive. Patient has failed conventional oxygen and high flow and is now dependent on CPAP BiPAP. Extensive discussions with the patient's and 2 sons were conducted 08/24/2021. He has an advanced directive indicating no CPR. After extensive discussion, the family elected to not pursue intubation mechanical ventilation as the patient was not able to clearly articulate his desires. He unfortunately is not showing any significant improvement. Recommendations: 1. COVID-19: Continue dexamethasone and baricitinib. Unclear if these are going to offer the patient a clinical benefit at the current time. Can continue as long as the family wants to push for continued medical therapy. No other adjuvants available. 2. Hypoxia: Patient is currently dependent on CPAP BiPAP. This really needs to be a bridge to something and in this case the only bridge would be the patient getting better transition to full palliative care. The BiPAP appears to be somewhat distressing to the patient. He would like to remove it. Would recommend discussions with family regarding goals of care at this point time. It may be reasonable to transition the patient to more palliative measures and focus on symptom treatment at this point time. Unfortunately at this point time I think the pulmonary service has little else to offer this patient other than consideration for palliative care measures. We will sign off. Feel free to contact us if we can be of additional assistance Admission and Anticipated Discharge Date Admission Date: August 22, 2021 Subjective Patient seen and examined. EMR reviewed. There is no sitter at bedside. The patient is dependent on CPAP/BiPAP. He does demonstrate increased work of breathing but does appear slightly confused as well. He is not able to clearly articulate his desires at the current time. Review of Systems Review of Systems: Unobtainable due to cognitive status Physical Exam Physical Exam: The patient appeared significantly ill Vital signs as documented. Head exam is normocephalic atraumatic Neck is without JVD, thyromegaly, or carotid bruits. Lungs are coarse in all lung zones Cardiac exam, Rhythm is regular.. No murmurs, rubs or gallops. Abdominal exam reveals normal bowel sounds, soft non tender, no masses Extremities are nonedematous and both pedal pulses are present Neurologic exam is alert and oriented x2, no focal loss of strength or sensation Skin is without bruises or rashes Psychologically is without concerns for anxiety or depression.. Results & Data Results & Data ([facility]) Vital Signs (Past 12 Hours) Vital Signs Temp Pulse Pulse Resp BP Pulse Ox 08/25/21 10:43 71 30 H 95 08/25/21 07:44 36.7 C 63 22 143/53 H 92 08/25/21 07:37 63 36 H 90 08/25/21 04:40 62 29 H 90 08/25/21 04:22 37 C 61 28 H 112/61 95 08/25/21 00:10 62 36 H 93 08/24/21 23:34 37 C 60 44 H 150/64 H 95 Laboratory Results 08/25/21 06:01 08/25/21 06:01 Diagnostic Findings No new imaging PG Care Time/CCT Total # of Minutes Spent Total Time Spent with Patient: Total time spent is greater than 50% in coordination of care (as documented) at patient's floor/unit and/or counseling patient: Coding Level of Care Code 21229 Subseq Hosp Care Lvl 2 Diagnoses Altered mental status R41.82 Hypoxia R09.02 Pneumonia due to severe acute respiratory syndrome coronavirus 2 (SARS-CoV-2) U07.1; J12.82
--- NOTE | 2021-08-25 15:14 | Hospitalist Progress Note ---
Date of Service August 25, 2021 Assessment & Plan (1) Pneumonia due to severe acute respiratory syndrome coronavirus 2 ( RS-CoV-2): Plan: continue on dexamethasone 6mg IV daily azithromycin 500mg daily added baricitinib 2mg daily on 08/23, will consider 14-day course LD 09/04/21 Lasix 20mg IV continues qAM incentive spirometer (2) Hypoxia: Plan: profound, due to severe pneumonia now cpap dependent 100% fio2 Lasix qAM try to get him on his side or prone but due to confusion he won't comply (3) Altered mental status: Plan: has some memory issues chronically, jameel son and family making medical decisions one to one sitter needed if he moves a supportive oxygen device the desaturate significantly Admission and Anticipated Discharge Date Admission Date: August 22, 2021 Subjective Patient was conversant and seems to oxygenate better when he lays on his side. There are no new complaints today Review of Systems Review of Systems: Moderate respiratory distress and fatigue no headache, no visual changes no speech or swallowing issues no chest pain, pressure or palpitations Significant shortness of breath, nonproductive cough no abdominal pain, nausea or vomiting, diarrhea or constipation no dysuria, hematuria or frequency no focal joint pain or swelling no back pain, CVA tenderness or radicular pain no bruising, bleeding or rashes no focal signs of weakness or numbness or altered sensation no complaints of anxiety or depression.. Physical Exam Physical Exam: The patient appeared significantly ill Vital signs as documented. Head exam is normocephalic atraumatic Neck is without JVD, thyromegaly, or carotid bruits. Lungs are coarse in all lung zones nonproductive coughing into his CPAP mask with deep inspiration Cardiac exam, Rhythm is regular.. No murmurs, rubs or gallops. Abdominal exam reveals normal bowel sounds, soft non tender, no masses Extremities are nonedematous and both pedal pulses are present Neurologic exam is alert and oriented x2, no focal loss of strength or sensation Skin is without bruises or rashes Psychologically is with concerns for encephalopathy or confusion Results & Data Results & [facility] ([facility]) Vital Signs (Past 12 Hours) Vital Signs Temp Pulse Pulse Resp BP BP Pulse Ox 08/25/21 14:52 98.1 F 66 30 H 134/64 92 08/25/21 14:45 65 34 H 90 08/25/21 10:43 71 30 H 95 08/25/21 07:44 98.1 F 63 22 143/53 H 92 08/25/21 07:37 63 36 H 90 08/25/21 04:40 62 29 H 90 08/25/21 04:22 98.6 F 61 28 H 112/61 95 PG Care Time/CCT Total # of Minutes Spent Total Time Spent with Patient: Total time spent is greater than 50% in coordination of care (as documented) at patient's floor/unit and/or counseling patient: Coding Level of Care Code 20430 Subseq Hosp Care Lvl 3 Diagnoses Pneumonia due to severe acute respiratory syndrome coronavirus 2 (SARS-CoV-2) U07.1; J12.82 Hypoxia R09.02 Altered mental status R41.82
[2021-08-26] MEDS: ATORVASTATIN 40 MG TAB PO SCH ×2 (06:40→20:14)
[2021-08-26] MEDS: LEVOTHYROXINE SODIUM 112 MCG TABLET PO SCH (06:40)
[2021-08-26] MEDS: ENOXAPARIN INJ 40 MG/0.4 ML SYR SQ SCH (06:41)
[2021-08-26] MEDS: dexAMETHasone 6 MG in SYRINGE 0 ML IV SCH (09:27)
[2021-08-26] MEDS: FUROSEMIDE INJ 20 MG/2 ML VIAL IV SCH (09:27)
[2021-08-26] MEDS: AZITHROMYCIN 500 MG in DEXTROSE 5% 250 ML IV SCH (09:27)
[2021-08-26] MEDS: METOPROLOL SUCC 50MG EXT REL TAB PO SCH (09:28)
[2021-08-26] MEDS: CHOLECALCIFEROL 1,000 UNITS 25 MCG TAB PO SCH (09:28)
[2021-08-26] MEDS: ZINC SULFATE 220 MG CAPSULE PO SCH (09:28)
[2021-08-26] MEDS: ASPIRIN 81 MG ECTAB PO SCH (09:29)
[2021-08-26] MEDS: BARICITINIB 2 MG TAB PO SCH (10:02)
--- NOTE | 2021-08-26 16:55 | Hospitalist Progress Note ---
Date of Service August 26, 2021 Assessment & Plan (1) Pneumonia due to severe acute respiratory syndrome coronavirus 2 ( RS-CoV-2): Plan: continue on dexamethasone 6mg IV daily azithromycin 500mg daily added baricitinib 2mg daily on 08/23, will consider 14-day course LD 09/04/21 Lasix 20mg IV continues qAM seems to be stuck in a holding pattern, family confirms would not want intubation incentive spirometer (2) Hypoxia: Plan: profound, due to severe pneumonia high flow and cpap Lasix qAM continue to reinforce side or prone positioning to help aeration (3) Altered mental status: Plan: has some memory issues chronically, jameel son and family making medical decisions one to one sitter needed if he moves a supportive oxygen device the desaturate significantly Admission and Anticipated Discharge Date Admission Date: August 22, 2021 Subjective Patient was conversant and seems to oxygenate better when he lays on his side. There are no new complaints today, still with elevevated oxygen requirements Review of Systems Review of Systems: Moderate respiratory distress and fatigue no headache, no visual changes no speech or swallowing issues no chest pain, pressure or palpitations Significant shortness of breath, nonproductive cough no abdominal pain, nausea or vomiting, diarrhea or constipation no dysuria, hematuria or frequency no focal joint pain or swelling no back pain, CVA tenderness or radicular pain no bruising, bleeding or rashes no focal signs of weakness or numbness or altered sensation no complaints of anxiety or depression.. Physical Exam Physical Exam: The patient appeared significantly ill, but improving Vital signs as documented. Head exam is normocephalic atraumatic Neck is without JVD, thyromegaly, or carotid bruits. Lungs remain coarse in all lung zones nonproductive coughing into his CPAP mask with deep inspiration Cardiac exam, Rhythm is regular.. No murmurs, rubs or gallops. Abdominal exam reveals normal bowel sounds, soft non tender, no masses Extremities are nonedematous and both pedal pulses are present Neurologic exam is alert and oriented x2, no focal loss of strength or sensation Skin is without bruises or rashes Psychologically is with concerns for encephalopathy or confusion Results & Data Results & Data ([facility]) Vital Signs (Past 12 Hours) Vital Signs Temp Pulse Pulse Resp BP BP Pulse Ox 08/26/21 15:44 97.7 F 62 24 123/75 89 L 11/26/21 14:12 66 20 93 08/26/21 11:35 99.5 F 74 20 143/68 H 97 08/26/21 11:25 77 22 91 08/26/21 08:06 64 24 90 08/26/21 07:51 98.2 F 68 20 128/65 90 PG Care Time/CCT Total # of Minutes Spent Total Time Spent with Patient: Total time spent is greater than 50% in coordination of care (as documented) at patient's floor/unit and/or counseling patient: Coding Level of Care Code 39723 Subseq Hosp Care Lvl 2 Diagnoses Pneumonia due to severe acute respiratory syndrome coronavirus 2 (SARS-CoV-2) U07.1; J12.82 Hypoxia R09.02 Altered mental status R41.82
[2021-08-27] MEDS ORDERED: LORazepam 0.5 MG TAB PO STA (03:43)
[2021-08-27] MEDS: ENOXAPARIN INJ 40 MG/0.4 ML SYR SQ SCH (05:10)
[2021-08-27] MEDS: LEVOTHYROXINE SODIUM 112 MCG TABLET PO SCH (05:10)
[2021-08-27 06:52] LABS: Creatinine Clr Calc Pharmacy 54.6 ml/min; Est GFR (African American) 71.3 ml/min; Est GFR (Non-African American) 61.5 ml/min
[2021-08-27] MEDS: dexAMETHasone 6 MG in SYRINGE 0 ML IV SCH (09:32)
[2021-08-27] MEDS: AZITHROMYCIN 500 MG in DEXTROSE 5% 250 ML IV SCH (09:32)
[2021-08-27] MEDS: METOPROLOL SUCC 50MG EXT REL TAB PO SCH (09:33)
[2021-08-27] MEDS: CHOLECALCIFEROL 1,000 UNITS 25 MCG TAB PO SCH (09:33)
[2021-08-27] MEDS: FUROSEMIDE INJ 20 MG/2 ML VIAL IV SCH (09:33)
[2021-08-27] MEDS: BARICITINIB 2 MG TAB PO SCH (09:33)
[2021-08-27] MEDS: ASPIRIN 81 MG ECTAB PO SCH (09:33)
[2021-08-27] MEDS: ZINC SULFATE 220 MG CAPSULE PO SCH (09:33)
[2021-08-27 11:35] VITALS: TEMP 99.1
[2021-08-27 15:47] VITALS: BP 137/59
[2021-08-27] MEDS ORDERED: MoRPHine SULFATE 2 MG/ML CARP IV PRN (16:24)
[2021-08-27] MEDS ORDERED: ATROPINE SULFATE 1% OP SOLN 5 ML BTL SL PRN (17:02)
[2021-08-27] MEDS ORDERED: LORazepam 0.5 MG/1 ML VIAL IV PRN (17:02)
[2021-08-27] MEDS ORDERED: GLYCOPYRROLATE 0.2 MG/ML VIAL IV PRN (17:02)
[2021-08-27] MEDS: ATORVASTATIN 40 MG TAB PO SCH (19:51)
--- NOTE | 2021-08-27 20:02 | Hospitalist Progress Note ---
Date of Service August 27, 2021 Assessment & Plan (1) Pneumonia due to severe acute respiratory syndrome coronavirus 2 ( RS-CoV-2): Plan: continue on dexamethasone 6mg IV daily azithromycin 500mg daily added baricitinib 2mg daily on 08/23 Lasix 20mg IV continues qAM worsening respiratory status today, requiring BIPAP but refusing, taking it off even on 60L and 100% FiO2 with NRB at 15L over nose and mouth his saturations were 70-80% RR in 30's, belly breathing as he will not be compliant with BIPAP, recommend to family to transition to [employer] they understand he will not survive, they will try to arrange Facetime or Zoom visit Morphine PRN, Ativan PRN stop other medications (2) Hypoxia: Plan: profound, due to severe pneumonia high flow and cpap Lasix qAM worsening respiratory status today, RR in 30's, accessory muscle use not compliant with CPAP/BIPAP with FiO2 100% will make comfortable (3) Altered mental status: Plan: has some memory issues chronically, darvin son and family making medical decisions Admission and Anticipated Discharge Date Admission Date: August 22, 2021 Subjective patient resisted BIPAP most of the night, he tolerated around 5am per RN he wanted to take it off to eat and drink this morning, he took his medications saturations dropped to low 80's on 60L and 100% as well as a NRB mask he was breathing in 30's, using accessory muscles, he admitted to feeling short of breath I discussed with son Darvin and son Chetan over the phone, explained that he would not last on high flow, could try BIPAP again they alluded to what Dr. Hand had discussed with them about BIPAP as a bridge I explained again that what that means is that BIPAP is not a permanent way to manage respiratory failure ideally you get better and don't need to go back on, or you decline and get intubated if a patient/family does not want intubation, then you should transition to comfort care sons asked to try BIPAP again patient kept BIPAP on for about 90 minutes and then took it off, refusing to have it placed back on as it is uncomfortable even when on NIPPV he was on 100% FiO2 and he was breathing in the 30's with saturations in high 80's at best placed back on HFNC 60L 100% with the NRB saturations in 70's and then he was refusing to wear the NRB, saturations dropped to 60's long discussion with all three sons on conference call, explained that we need to transition to comfort measures that the only thing that would sustain the patient and keep him alive is intubation, however he does not want that if we keep forcing him to wear BIPAP which he keeps removing then we are making his suffer they were going to speak to their mother about arranging a zoom or Facetime visit they were okay with giving Morphine 2mg IV for respiratory distress and to make more comfortable transition to T[employer] total time on patient today was 68 minutes Review of Systems Review of Systems: All systems reviewed & are unremarkable except as noted in Subjective Respiratory: + dyspnea Physical Exam Physical Exam: General: well developed, obese elderly male, ill appearing, in moderate distress with tachypnea Neck: supple, trachea midline, normal thyroid Lungs: some crackles in bases, + tachypnea, + belly breathing, moderate respiratory distress Heart: regular S1 and S2, no murmur, peripheral pulses normal, capillary refill normal, no edema Abdomen: soft, NT, ND, + BS, no hepatomegaly, normal to percussion Extremities: normal in appearance, no cyanosis, no petechiae, strength is 5/5 bilaterally Neuro: awake, uncooperative, moves all extremities, no focal motor deficits, CN II-XII intact Skin: warm, dry, no rash, normal turgor, small laceration above left eye with stitches Psych: Awake, oriented to person, agitated and uncooperative with BIPAP Results & Data Results & Data ([facility]) Vital Signs (Past 12 Hours) Vital Signs Temp Pulse Pulse Resp BP Pulse Ox 08/27/21 18:21 67 28 H 83 L 08/27/21 16:15 74 24 81 L 08/27/21 15:00 37.3 C 73 25 H 137/59 L 94 08/27/21 14:15 75 15 92 08/27/21 11:33 37.3 C 88 21 129/61 83 L 08/27/21 08:17 98 H 22 89 L Laboratory Results Laboratory Results - last 24 hr 08/27/21 05:47 Creatinine 1.11 Est Cr Clr Drug Dosing 54.6 Est GFR ( Amer) 71.3 Est GFR (Non-Af Amer) 61.5 Medications Administered Current Inpatient Medications Aspirin (Aspirin 81 Mg Ectab) 162 mg PO QAM CORTES Stop: 09/21/21 08:59 Last Admin: 08/27/21 09:33 Dose: 162 mg Documented by: Atorvastatin Calcium (Atorvastatin 40 Mg Tab) 80 mg PO QPM CORTES Stop: 09/21/21 20:59 Last Admin: 08/27/21 19:51 Dose: Not Given Documented by: Atropine Sulfate (Atropine Sulfate 1% Op Soln 5 Ml Btl) 4 drops SL Q1H PRN PRN Reason: Secretions or pulm congestion Stop: 09/26/21 17:01 Baricitinib (4mg Daily X 14 Days (Egfr >60 Ml/Min/1.73m2)) 4 mg PO DAILY CORTES; Protocol Stop: 09/05/21 09:01 Nystatin 30 ml/ Dexamethasone 3.75 mg/ Diphenhydramine HCl 300 mg/ Sucrose 45 ml/Microcrystalline Cellulose 45 ml/ BARCODE IDENTIFIER 1 ea 0 ml PO Q4H PRN PRN Reason: Pain Stop: 09/26/21 03:42 Enoxaparin Sodium (Enoxaparin Inj 40 Mg/0.4 Ml Syr) 40 mg SQ Q24H CORTES Stop: 09/22/21 05:59 Last Admin: 08/27/21 05:10 Dose: 40 mg Documented by: Furosemide (Furosemide Inj 20 Mg/2 Ml Vial) 20 mg IV QAM CORTES Stop: 09/22/21 08:59 Last Admin: 08/27/21 09:33 Dose: 20 mg Documented by: Glycopyrrolate (Glycopyrrolate 0.2 Mg/Ml Vial) 0.2 mg IV Q4H PRN PRN Reason: Secretions or Pulm Congestion Stop: 09/26/21 17:01 Dexamethasone 6 mg/ Syringe 1.5 mls @ 1 mls/min IV Q24H CORTES Stop: 09/21/21 07:59 Last Admin: 08/27/21 09:32 Dose: 1 mls/min Documented by: Azithromycin 500 mg/ Dextrose 255 mls @ 125 mls/hr IV DAILY CORTES Stop: 08/29/21 08:59 Last Infusion: 08/27/21 11:47 Dose: Infused Documented by: Lorazepam (Ativan) 0.5 mg in 1 mls @ 1 mls/min IV Q4H PRN PRN Reason: Anxiety/Agitation Stop: 09/26/21 17:01 Ipratropium [place] (Ipratropium [place] Neb Soln 0.02% 2.5 Ml Vial) 0.5 mg INH Q6R PRN PRN Reason: Wheezing Stop: 09/21/21 07:20 Levalbuterol HCl (Levalbuterol 1.25mg/0.5ml Neb) 1.25 mg INH Q6R PRN PRN Reason: Wheezing Stop: 09/21/21 07:20 Levothyroxine Sodium (Levothyroxine Sodium 112 Mcg Tablet) [facility] Stop: 09/22/21 06:29 Last Admin: 08/27/21 05:10 Dose: 112 mcg Documented by: Metoprolol Succinate (Metoprolol Succ 50mg Ext Rel Tab) [facility] [place] Stop: 09/21/21 08:59 Last Admin: 08/27/21 09:33 Dose: 50 mg Documented by: Morphine Sulfate (Morphine Sulfate 2 Mg/Ml Carp) 2 mg IV Q1H PRN PRN Reason: Dyspnea Stop: 09/10/21 16:23 Last Admin: 08/27/21 16:45 Dose: 2 mg Documented by: Ondansetron HCl (Ondansetron Inj 2 Mg/Ml 2 Ml Vial) 4 mg IV Q6H PRN PRN Reason: Nausea Stop: 09/21/21 07:20 Vitamin D (Cholecalciferol 1,000 Units 25 Mcg Tab) 1,000 units PO [facility] Stop: 09/21/21 08:59 Last Admin: 08/27/21 09:33 Dose: 1,000 units Documented by: Zinc Sulfate (Zinc Sulfate 220 Mg Capsule) 220 mg PO [facility] Stop: 09/21/21 08:59 Last Admin: 08/27/21 09:33 Dose: 220 mg Documented by: PG Care Time/CCT Total # of Minutes Spent Total Time Spent: 68 Total Time Spent with Patient: Total time spent is greater than 50% in coordination of care (as documented) at patient's floor/unit and/or counseling patient: 40 minutes spent discussing situation with family over the phone 28 minutes spent with separate visits with patient at the bedside, discussing with RN, discussing with Dr. Hand, reviewing chart, documentation Prolonged Care Time Prolonged Care Time: Yes Total Prolonged Care Time: 38 68 Coding Level of Care Code 93183 Subseq Hosp Care Lvl 3 (25 - SIGNIFICANT, SEPARATELY IDENTIFIABLE ) Diagnoses Pneumonia due to severe acute respiratory syndrome coronavirus 2 (SARS-CoV-2) U07.1; J12.82 Hypoxia R09.02 Altered mental status R41.82 Additional Codes Prolonged Care Time - Prolonged Care Time: Yes ([id number])
[2021-08-28] MEDS ORDERED: LORazepam 1 MG/2 ML VIAL IV PRN (07:35)
[2021-08-28] MEDS ORDERED: MoRPHine SULFATE 4 MG/ML 1 ML CARP\\VIAL IV PRN (07:42)
[2021-08-28 08:02] LABS: Creatinine Clr Calc Pharmacy 61.3 ml/min; Est GFR (African American) 81.9 ml/min; Est GFR (Non-African American) 70.6 ml/min
[2021-08-28] MEDS ORDERED: 4mg Daily x 14 days (eGFR >60 mL/min/1.73m2) PO SCH (09:00)
--- NOTE | 2021-08-28 13:42 | Hospitalist Progress Note ---
Date of Service August 28, 2021 Assessment & Plan (1) Pneumonia due to severe acute respiratory syndrome coronavirus 2 ( RS-CoV-2): Plan: received dexamethasone, baricitinib, Lasix for the first 6 days of admission worsening respiratory status 08/27, requiring BIPAP but refusing, taking it off even on 60L and 100% FiO2 with NRB at 15L over nose and mouth his saturations were 70-80% RR in 30's, belly breathing would not be compliant with BIPAP, recommend to family to transition to [employer] they understand he will not survive will move to private negative pressure room, try to arrange for time for family to visit Morphine PRN, Ativan PRN stop other medications (2) Hypoxia: Plan: profound, due to severe pneumonia worsening respiratory status 08/27, RR in 30's, accessory muscle use not compliant with CPAP/BIPAP with FiO2 100% will make comfortable with Morphine/Ativan (3) Altered mental status: Plan: has some memory issues chronically his sons and family making medical decisions discussed several days ago with palliative care and pulmonology, agreed patient would not want intubated I have discussed the situation with the patient, he is starting to understand that he is dying, he says he is scared, does not want to leave his he would like to see his sons if they can come in Plan: move to medical, private negative pressure room, allow family an end of life visit Admission and Anticipated Discharge Date Admission Date: August 22, 2021 Subjective patient is drinking water, eating a few bites of food he is on 60L and 100%, saturations are 70-80%, he is tachypneic but not in distress discussed with him that we had changed to comfort measures, focused on keeping him comfortable, he said "thank you" I called his son Darvin, explained that we would move him to a private negative pressure room, would call once we made that happen, if family would want to visit patient is sleeping most of the day, again he refused to even try the BIPAP/CPAP today because it is uncomfortable no labs, only medications are for comfort Review of Systems Review of Systems: All systems reviewed & are unremarkable except as noted in Subjective Physical Exam Physical Exam: General: well developed, obese elderly male, ill appearing, mild distress Neck: supple, trachea midline, normal thyroid Lungs: some crackles in bases, + tachypnea, + belly breathing Heart: regular S1 and S2, no murmur, peripheral pulses normal, capillary refill normal, no edema Abdomen: soft, NT, ND, + BS, no hepatomegaly, normal to percussion Extremities: normal in appearance, no cyanosis, no petechiae, strength is 5/5 bilaterally Neuro: awake, uncooperative, moves all extremities, no focal motor deficits, CN II-XII intact Skin: warm, dry, no rash, normal turgor, small laceration above left eye with stitches Psych: Awake, oriented to person, understands he is dying Results & Data Results & Data ([facility]) Vital Signs (Past 12 Hours) Vital Signs Pulse Pulse Resp Pulse Ox 08/28/21 11:27 68 26 H 91 08/28/21 07:22 81 08/28/21 07:01 79 32 H 68 L 08/28/21 03:04 24 68 L Medications Administered Current Inpatient Medications Atropine Sulfate (Atropine Sulfate 1% Op Soln 5 Ml Btl) 4 drops SL Q1H PRN PRN Reason: Secretions or pulm congestion Stop: 09/26/21 17:01 Glycopyrrolate (Glycopyrrolate 0.2 Mg/Ml Vial) 0.2 mg IV Q4H PRN PRN Reason: Secretions or Pulm Congestion Stop: 09/26/21 17:01 Lorazepam (Ativan) 1 mg in 2 mls @ 2 mls/min IV Q2H PRN PRN Reason: Anxiety/Agitation Stop: 09/27/21 07:34 Morphine Sulfate (Morphine Sulfate 4 Mg/Ml 1 Ml Carp\\Vial) 4 mg IV Q1H PRN PRN Reason: Dyspnea Stop: 09/11/21 07:41 Ondansetron HCl (Ondansetron Inj 2 Mg/Ml 2 Ml Vial) 4 mg IV Q6H PRN PRN Reason: Nausea Stop: 09/21/21 07:20 PG Care Time/CCT Total # of Minutes Spent Total Time Spent: 33 Total Time Spent with Patient: Total time spent is greater than 50% in coordination of care (as documented) at patient's floor/unit and/or counseling patient: Coding Level of Care Code 03613 Subseq Hosp Care Lvl 3 (25 - SIGNIFICANT, SEPARATELY IDENTIFIABLE ) Diagnoses Pneumonia due to severe acute respiratory syndrome coronavirus 2 (SARS-CoV-2) U07.1; J12.82 Hypoxia R09.02 Altered mental status R41.82
[2021-08-28 17:23] VITALS: O2SAT 50
[2021-08-28 17:24] VITALS: PULSE 62
--- NOTE | 2021-08-28 20:23 | Death Pronouncement Note ---
Date of Service August 28, 2021 Pronouncement Note Admission Date Admission Date: August 22, 2021 Date and Time of Date of : 08/28/21 Time of : 20:15 Contributing Factors (1) Pneumonia due to severe acute respiratory syndrome coronavirus 2 (SARS-CoV-2): (2) Hypoxia: (3) Altered mental status: Hospital Course Hospital Course: see note Summary Additional details: Notified of patient passing. Nurse to Nurse pronouncement order placed. Additional Data Attending physician: Jacob Alcocer DO Resident Activity Tracking Resident Involvement: Resident Care Provided and Jewelry Sales Coordinator Coverage Note Care Provided: Adult Hospital Medicine
--- NOTE | 2021-08-29 07:19 | Discharge Summary ---
Date of Service August 28, 2021 Admission HPI Per Admitting Provider The patient is an 80-year-old male with a past medical history including hyperlipidemia, hypertension, hypothyroidism, CAD, and nocturia. The patient himself is somewhat confused, and unable to contribute significantly to HPI or review of systems. Information has been gained from my conversations with his son, who is in the emergency department this evening. His son noted that the patient had the above symptoms of 6 days of worsening shortness of breath, dyspnea exertion and confusion, and notes that the patient's is his home at this time with COVID-19 infection and a DVT. Principal Diagnosis COVID 19 pneumonia Acute hypoxic respiratory failure Discharge Exam no pulse, no respirations, no heart tones, no breath sounds, pupils fixed, unresponsive Discharge Data Allergies Allergy/AdvReac Type Severity Reaction Status Date / Time Penicillins Allergy Unknown hives Verified 05/16/21 14:01 Consultations 08/22/21 02:03 ED Decision to Admit Stat 08/22/21 22:41 Consult Pulmonology Routine 08/23/21 08:59 Consult Palliative Care Routine Ordered Studies 08/22/21 00:36 CT cervical spine wo con Urgent CT head/brain wo con Urgent Hospital Course (1) Pneumonia due to severe acute respiratory syndrome coronavirus 2 (SARS-CoV-2): received dexamethasone, baricitinib, Lasix for the first 6 days of admission worsening respiratory status 08/27, requiring BIPAP but refusing to wear it, taking it off even on 60L and 100% FiO2 with NRB at 15L over nose and mouth his saturations were 70-80% RR in 30's, belly breathing would not be compliant with BIPAP, recommend to family to transition to [employer] they understand he will not survive moved to private negative pressure room in [facility] his , two sons and their wives were able to visit him in the evening on 08/28 Morphine PRN, Ativan PRN stopped other medications he in the evening on 08/28, family notified by the night resident (2) Hypoxia: profound, due to severe pneumonia worsening respiratory status 08/27, RR in 30's, accessory muscle use not compliant with CPAP/BIPAP with FiO2 100% made comfortable with Morphine/Ativan (3) Altered mental status: has some memory issues chronically his sons and family making medical decisions discussed several days ago with palliative care and pulmonology, agreed patient would not want intubated I have discussed the situation with the patient, he is starting to understand that he is dying, he says he is scared, does not want to leave his he was happy to see his and sons at the bedside on 08/28 Total Time Total Time Spent Total Time Spent (In Minutes): 65 minutes Total Time Includes: Examination of the Patient and Other (50 minutes speaking with family, coordinating their visit at the bedside) Discharge Plan Discharge Items Patient Disposition: Discharge Diagnosis: Addtl Attending Provider Instructions: see note and nurse to nurse confirmation Other Date/Time: 08/28/21 20:15 Coding Level of Care Code D/C DAY MANAGEMENT >30 MINS Diagnoses Pneumonia due to severe acute respiratory syndrome coronavirus 2 (SARS-CoV-2) U07.1; J12.82 Hypoxia R09.02 Altered mental status R41.82
== END 2021-08-28 22:56 | disposition expired | DRG 177 ==
LOC: ED 00:06 → 2E 04:08 → SUATTDRO 04:08 → 3W 08-28 17:06